=== PATIENT | male | born 1980 | race Two or more races ===

== ENCOUNTER 2021-12-23 09:37 | Outpatient (REF) | payer OTHER, SELFPAY ==
[2021-12-23 10:21] LABS: Hemoglobin 15.9 g/dl (14.0-18.0); Mean Corpuscular HGB Conc 34.6 g/dl (31.0-36.0); Mean Corpuscular Hemoglobin 28.9 pg (27.0-33.0); Mean Corpuscular Volume 83.6 fL (80.0-98.0); Mean Platelet Volume 9.3 fL (9.4-12.4); Platelet Count 338 X10*3/uL (160-400); Red Cell Distribution Width 13.9 % (11.0-16.0); White Blood Count 13.3 X10*3/uL (4.8-10.8)
[2021-12-23 10:34] LABS: Estimated Average Glucose 117 mg/dL; Hemoglobin A1c % 5.7 %
[2021-12-23 10:52] LABS: Alanine Aminotransferase 32 U/L (0-40); Albumin Level 4.2 g/dL (3.5-5.0); Alkaline Phosphatase 69 U/L (39-117); Anion Gap 13 (12-20); Aspartate Amino Transferase 17 U/L (5-37); Bilirubin Total 0.4 mg/dL (0.0-1.0); Blood Urea Nitrogen 18 mg/dL (9-16); Calcium 9.8 mg/dL (8.4-10.2); Carbon Dioxide 27 mmol/L (22-29); Chloride 107 mmol/L (96-108); Cholesterol 199 mg/dL; Estimated Glomerular Filt Rate > 60; Glucose Fasting 96 mg/dL (60-99); HDL Cholesterol 35 mg/dL; LDL Cholesterol Calculated 136 mg/dl; Sodium 143 mmol/L (135-145); Total Protein 7.5 g/dL (6.5-8.0); Triglycerides 141 mg/dL
[2021-12-23 11:12] LABS: TSH reflex Free T4 2.79 uIU/mL (0.32-4.0)
== END 2021-12-23 09:38 | disposition home or self-care (01) ==
LOC: HO.LAB 09:37
PROVIDERS: PCP Physician Assistant; Visit Provider Physician Assistant
DX: Z13.29 Encounter for screening for other suspected endocrine disorder (principal); E78.2 Mixed hyperlipidemia
CPT/HCPCS: 36415; 80053; 80061; 83036; 84443; 85027

== ENCOUNTER 2022-03-21 12:04 | Outpatient (REF) | payer OTHER, SELFPAY ==
--- NOTE | ~2022-03-21 | XR_ITS ---
EXAMINATION: XR CHEST CLINICAL INFORMATION: Cough COMPARISON: 11/09/2015 TECHNIQUE: 2 views of the chest were obtained. FINDINGS: No significant abnormality is noted involving the heart, lungs, mediastinum, bony thorax or soft tissues. XR/XR chest 2V IMPRESSION: Unremarkable examination.
[2022-03-21 13:36] LABS: MANUAL DIFF FLAG NO
[2022-03-21 13:43] LABS: Basophils Absolute Auto 0.1 X10*3/uL (0.0-0.2); Basophils Percent Auto 0.4 % (0-2); Eosinophils Absolute Auto 0.1 X10*3/uL (0.0-0.4); Hematocrit 46.7 % (42.0-52.0); Hemoglobin 15.8 g/dl (14.0-18.0); Imm Gran Pct Auto 0.7 % (0.0-0.4); Lymphocytes Absolute Auto 3.1 X10*3/uL (1.2-4.9); Lymphocytes Percent Auto 22.4 % (20-40); Mean Corpuscular HGB Conc 33.8 g/dl (31.0-36.0); Mean Corpuscular Hemoglobin 28.4 pg (27.0-33.0); Mean Corpuscular Volume 83.8 fL (80.0-98.0); Mean Platelet Volume 9.5 fL (9.4-12.4); Monocytes Absolute Auto 1.1 X10*3/uL (0.1-1.2); Monocytes Percent Auto 8.1 % (2-11); Neutrophils Absolute Auto 9.2 x10*3/uL (2.0-8.3); Neutrophils Percent Auto 67.4 % (45-73); Platelet Count 374 X10*3/uL (160-400); Red Blood Count 5.57 X10*6/uL (4.60-5.80); Red Cell Distribution Width 13.2 % (11.0-16.0); White Blood Count 13.6 X10*3/uL (4.8-10.8)
[2022-03-21 14:19] LABS: Monotest Negative (Negative)
[2022-03-21 14:46] LABS: Alanine Aminotransferase 44 U/L (0-40); Albumin Level 4.4 g/dL (3.5-5.0); Alkaline Phosphatase 92 U/L (39-117); Anion Gap 12 (12-20); Aspartate Amino Transferase 32 U/L (5-37); Bilirubin Direct 0.3 mg/dL (0.0-0.5); Bilirubin Total 0.6 mg/dL (0.0-1.0); Blood Urea Nitrogen 15 mg/dL (9-16); Calcium 9.7 mg/dL (8.4-10.2); Carbon Dioxide 26 mmol/L (22-29); Chloride 106 mmol/L (96-108); Estimated Glomerular Filt Rate > 60; Glucose Random 116 mg/dL (60-115); Potassium 4.3 mmol/L (3.3-5.1); Sodium 140 mmol/L (135-145); Total Protein 8.4 g/dL (6.5-8.0)
[2022-03-21 15:31] LABS: Influenza A PCR NEGATIVE (Negative); Influenza B PCR NEGATIVE (Negative); Resp Syncy Virus RNA Qual PCR NEGATIVE (Negative); SARS COV2 PCR INHOUSE NEGATIVE (Negative)
[2022-03-23 04:29] LABS: Lyme Abs Screen <0.90 index
== END 2022-03-21 12:05 | disposition home or self-care (01) ==
LOC: HO.HMGCLDS 12:04
PROVIDERS: Visit Provider Physician Assistant
DX: B34.9 Viral infection, unspecified (principal); R50.9 Fever, unspecified; R05.9 Cough, unspecified; Z20.822 Contact with and (suspected) exposure to COVID-19
CPT/HCPCS: 0241U; 36415; 71046; 80048; 80076; 85025; 86308; 86617; 86618

== ENCOUNTER 2022-03-24 17:00 | Outpatient (RCR) | payer OTHER, SELFPAY ==
--- NOTE | 2022-02-15 13:53 | MHC.PT.EP ---
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 He reports he has a brain MRI 02/16/22 and an EMG on 03/30/22. Pt presents with current impairments in pain, decreased ROM, decreased strength, soft tissue restrictions, and impaired posture. He is limited functionally by facial expressions, eating, and eye opening/closing. Pt is a good candidate for skilled PT in order to address current impairments to facilitate return to PLOF. He will be seen 2x/week for 4 weeks and will be reassessed at that time. Frequency and Duration: The patient will be seen 2x/week for 4 weeks Short Term Goals: Pt will be I with HEP to promote self management of symptoms Pt will demonstrate improvement in L smiling to 75% compared to R side Intermediate Goals: Pt will demonstrate 100% eye closing of L eye in order to protect eye and prevent dryness/injury Pt will report <3/10 L sided forehead, eyebrow, eye, and cheek pain w/ chewing and swallowing to promote eating with minimal to no compensation Treatment Plan: Modalities to reduce pain, spasms and effusion. Manual therapy to restore motion and function. Therapeutic exercise to improve strength and flexibility. Neuromuscular re-education for posture and balance. Therapeutic activities to return to functional activities of daily living. Electronically signed by: Shivani Sue, PT, DPT Please sign and return to therapist. Thank you for your referral.
--- NOTE | 2022-03-25 14:00 | MHC.PT.DC ---
[facility] [place] Office [place] Office [place] Office [address] Matt Barnes [address] [phone] F: [phone] F: [phone] F: [phone] F: [phone] Physical Therapy Discharge Report Diagnosis: Isaacs's Palsy Date of Surgery: n/a Date of Evaluation: 02/14/22 Date of Discharge: 03/25/22 Treatments to Date: 7 Cancellations to Date: No Shows to Date: Discharge Status: Achieved Goals Improved Function Independent with HEP Discharge Summary: Pt has made excellent progress since SOC. He no longer has facial pain. He reports he has returned to eating/chewing without compensation. He has improved voluntary activation of facial muscles throughout L side. Eye opening, forehead wrinkling, smiling, frowning, and mouth opening are symmetrical bilaterally. He is able to close L eye ~95% at this time. He is I and compliant with HEP. Pt is being D/C from skilled PT at this time. Pt reports no further questions or concerns for PT at time of D/C. Electronically signed by: Shivani Sue, PT, DPT Please sign and return to therapist. Thank you for your referral.
== END 2022-03-25 14:00 | disposition home or self-care (01) ==
LOC: HO.PT 17:00
PROVIDERS: PCP Physician Assistant; Visit Provider Nurse Practitioner Family
DX: G51.0 Bell's palsy (principal)
CPT/HCPCS: 97014; 97110; 97140; 97162

== ENCOUNTER 2022-07-09 10:14 | Outpatient (REF) | payer OTHER, SELFPAY ==
[2022-07-09 11:23] LABS: Hematocrit 45.7 % (42.0-52.0); Mean Corpuscular Hemoglobin 29.3 pg (27.0-33.0); Mean Corpuscular Volume 83.5 fL (80.0-98.0); Mean Platelet Volume 9.8 fL (9.4-12.4); Platelet Count 297 X10*3/uL (160-400); Red Blood Count 5.47 X10*6/uL (4.60-5.80); Red Cell Distribution Width 13.8 % (11.0-16.0); White Blood Count 6.8 X10*3/uL (4.8-10.8)
[2022-07-09 11:40] LABS: Alanine Aminotransferase 49 U/L (0-40); Albumin Level 4.3 g/dL (3.5-5.0); Alkaline Phosphatase 79 U/L (39-117); Anion Gap 13 (12-20); Aspartate Amino Transferase 33 U/L (5-37); Bilirubin Total 0.6 mg/dL (0.0-1.0); Blood Urea Nitrogen 17 mg/dL (9-16); Calcium 9.5 mg/dL (8.4-10.2); Carbon Dioxide 26 mmol/L (22-29); Chloride 107 mmol/L (96-108); Cholesterol 160 mg/dL; Estimated Glomerular Filt Rate > 60; Glucose Fasting 117 mg/dL (60-99); HDL Cholesterol 32 mg/dL; LDL Cholesterol Calculated 104 mg/dl; Sodium 141 mmol/L (135-145); Total Protein 7.8 g/dL (6.5-8.0); Triglycerides 124 mg/dL
[2022-07-09 12:02] LABS: TSH reflex Free T4 1.29 uIU/mL (0.32-4.0)
[2022-07-11 21:42] LABS: Herpes Simplex Type 1 IgG >58.00 index; Herpes Simplex Type 2 IgG 1.33 index
[2022-07-11 21:47] LABS: Lyme Abs Screen <0.90 index
== END 2022-07-09 10:15 | disposition home or self-care (01) ==
LOC: HO.LAB 10:14
PROVIDERS: PCP Physician Assistant; Visit Provider Physician Assistant
DX: E78.2 Mixed hyperlipidemia (principal); G51.0 Bell's palsy
CPT/HCPCS: 36415; 80053; 80061; 84443; 85027; 86617; 86618; 86695; 86696

== ENCOUNTER → 2022-08-30 14:30 | Outpatient (BNVA) | payer OTHER, SELFPAY | PROVIDERS: PCP Physician Assistant; Visit Provider Orthopaedic Surgery | DX: G56.02 Carpal tunnel syndrome, left upper limb (principal); R20.0 Anesthesia of skin | CPT/HCPCS: 99202 ==

== ENCOUNTER 2022-09-01 06:48 | Outpatient (REF) | payer OTHER, SELFPAY ==
--- NOTE | ~2022-09-01 | XR_ITS ---
EXAMINATION: BILATERAL KNEE STANDING. LEFT KNEE. CLINICAL INFORMATION: Bilateral knee pain. COMPARISON: None TECHNIQUE: AP bilateral knee standing. Left knee 2 views. FINDINGS: AP bilateral knee: There is mild reduction in the medial compartment joint space both knees. The lateral compartment joints is maintained normal. No loose bodies or bony erosive changes. The soft tissues are normal. Left knee: Lateral and patellar views left knee reveal minimal loss of patellofemoral compartment joint space. No bony erosive changes, loose bodies or dislocation seen. There is no fracture. No abnormal suprapatellar joint effusion. XR/XR knee LT 2V IMPRESSION: Mild degenerative changes medial compartment joint space both knees and left patellofemoral compartment. No visible acute fracture, dislocation or subluxation seen.
--- NOTE | ~2022-09-01 | XR_ITS ---
EXAMINATION: BILATERAL KNEE STANDING. LEFT KNEE. CLINICAL INFORMATION: Bilateral knee pain. COMPARISON: None TECHNIQUE: AP bilateral knee standing. Left knee 2 views. FINDINGS: AP bilateral knee: There is mild reduction in the medial compartment joint space both knees. The lateral compartment joints is maintained normal. No loose bodies or bony erosive changes. The soft tissues are normal. Left knee: Lateral and patellar views left knee reveal minimal loss of patellofemoral compartment joint space. No bony erosive changes, loose bodies or dislocation seen. There is no fracture. No abnormal suprapatellar joint effusion. XR/XR knee standing BI IMPRESSION: Mild degenerative changes medial compartment joint space both knees and left patellofemoral compartment. No visible acute fracture, dislocation or subluxation seen.
== END 2022-09-01 06:49 | disposition home or self-care (01) ==
LOC: HO.HOSX 06:48
PROVIDERS: Visit Provider Physician Assistant
DX: M22.2X2 Patellofemoral disorders, left knee (principal); M25.561 Pain in right knee
CPT/HCPCS: 73560; 73565; 99202

== ENCOUNTER 2022-10-03 09:33 | Day surgery (SDC) | payer OTHER, SELFPAY ==
[2022-10-03 10:30] VITALS: BMI 32.5
--- NOTE | 2022-10-03 11:57 | MHC.SHP ---
Pre-Procedural Eval Section A Date of Service: 10/03/22 The patient is an INPATIENT: No Changes since office visit: No Cold of Flu in the past 2 weeks, No New Medical Problems, No Changes in Medication and No Patient answered all questions The History & Physical has been completed within 30 days and I have reviewed it.: Yes Section B Chief Complaint: Carpal tunnel syndrome, left upper limb Allergies: Allergies Allergy/AdvReac Type Severity Reaction Status Date / Time albuterol AdvReac Unknown vomiting Verified 08/30/22 14:44 Plan I have reviewed the history and physical and performed a pertinent physical examination on my patient. No changes have occurred unless specified. Time Spent With Patient Time: Total time managing care of this patient today ____ minutes.
--- NOTE | 2022-10-03 11:58 | W.PM.OPN ---
Operative Note Operative Note Date of Service: 10/03/22 Narrative: Preop diagnosis: 1. left Carpal tunnel syndrome Postop diagnosis: same Procedure: 1. left Carpal tunnel release Surgeon: Dora Adams MD Anesthesia: local block using 1% lidocaine with epinephrine Findings: Thickened transverse carpal ligament. EBL: Less than 5 mL Specimens: None Complications: None Disposition: Brought to recovery room in stable condition Plan: Follow-up for 10-14 days for wound check and suture removal Indications: The patient is 42 years old, with left carpal tunnel syndrome that has been unresponsive to nonoperative management. The risks and benefits of operative treatment including but not limited to risk of damage to blood vessels, nerves, tendons, infection, persistent pain, persistent symptoms, or possible need for additional surgery were discussed with the patient and the patient wishes to proceed with surgery. Procedure: Once consent was obtained a local block was performed using a combination of 1% lidocaine with epinephrine. The patient was then brought back to the operating suite and placed on the operative table in supine position. A tourniquet was applied to the proximal aspect of the left upper extremity and the limb was prepped and draped in a standard surgical fashion. Once assured that we had a good block, a 2.0 cm longitudinal incision was made centered over the carpal tunnel. The incision was made through the skin to the subcutaneous tissues using a #15 blade. Dissection was made down to the level of the transverse carpal ligament with care being taken to protect the palmar cutaneous nerve. Once the transverse carpal ligament was clearly visualized, a longitudinal incision was made in the transverse carpal ligament 1st using a #15 blade, then using tenotomy scissors under direct visualization. Care was taken to look for and protect the motor branch of the median nerve when seen in this area. Once satisfied with our carpal tunnel release the wound was copiously irrigated with normal saline and hemostasis was obtained with a brief period of local pressure. The skin edges were reapproximated with some 5.0 nylon suture material and a sterile dressing was applied. The patient appears to have tolerated the procedure well and with no complications. All digits were well vascularized at the conclusion of the case.
[2022-10-03 12:35] VITALS: BP 120/81; PULSE 72; RESP 16; O2SAT 97
== END 2022-10-03 12:36 | disposition home or self-care (01) ==
PROVIDERS: PCP Physician Assistant; Visit Provider Orthopaedic Surgery
PROC: (CPT 64721; principal; 2022-10-03 12:10)
DX: G56.02 Carpal tunnel syndrome, left upper limb (principal); R20.0 Anesthesia of skin; R20.2 Paresthesia of skin; Z88.8 Allergy status to other drugs, medicaments and biological substances
CPT/HCPCS: 64721; J0171

== ENCOUNTER → 2022-10-18 11:51 | Outpatient (BNVA) | payer OTHER, SELFPAY | PROVIDERS: PCP Physician Assistant; Visit Provider Orthopaedic Surgery | DX: G56.02 Carpal tunnel syndrome, left upper limb (principal); R20.0 Anesthesia of skin | CPT/HCPCS: 99212 ==

== ENCOUNTER 2022-11-17 08:26 | Day surgery (SDC) | payer OTHER, SELFPAY ==
[2022-11-17 08:48] VITALS: BP 121/74; PULSE 88; RESP 18; TEMP 36.6; O2SAT 97; BMI 33.3
--- NOTE | 2022-11-17 09:28 | MHC.SHP ---
Pre-Procedural Eval Section A Date of Service: 11/17/22 The patient is an INPATIENT: No Changes since office visit: No Cold of Flu in the past 2 weeks, No New Medical Problems, No Changes in Medication and No Patient answered all questions The History & Physical has been completed within 30 days and I have reviewed it.: Yes Section B Chief Complaint: Carpal tunnel syndrome, right upper limb Allergies: Allergies Allergy/AdvReac Type Severity Reaction Status Date / Time albuterol AdvReac Unknown vomiting Verified 10/18/22 11:56 Plan I have reviewed the history and physical and performed a pertinent physical examination on my patient. No changes have occurred unless specified. Time Spent With Patient Time: Total time managing care of this patient today ____ minutes.
--- NOTE | 2022-11-17 09:28 | W.PM.OPN ---
Operative Note Operative Note Date of Service: 11/17/22 Narrative: Preop diagnosis: 1. Right Carpal tunnel syndrome Postop diagnosis: same Procedure: 1. Right Carpal tunnel release Surgeon: Dora Adams MD Anesthesia: local block using 1% lidocaine with epinephrine Findings: Thickened transverse carpal ligament. EBL: Less than 5 mL Specimens: None Complications: None Disposition: Brought to recovery room in stable condition Plan: Follow-up for 10-14 days for wound check and suture removal Indications: The patient is 42 years old, with right carpal tunnel syndrome that has been unresponsive to nonoperative management. The risks and benefits of operative treatment including but not limited to risk of damage to blood vessels, nerves, tendons, infection, persistent pain, persistent symptoms, or possible need for additional surgery were discussed with the patient and the patient wishes to proceed with surgery. Procedure: Once consent was obtained a local block was performed using a combination of 1% lidocaine with epinephrine. The patient was then brought back to the operating suite and placed on the operative table in supine position. The right upper extremity was prepped and draped in a standard surgical fashion. Once assured that we had a good block, a 2.0 cm longitudinal incision was made centered over the carpal tunnel. The incision was made through the skin to the subcutaneous tissues using a #15 blade. Dissection was made down to the level of the transverse carpal ligament with care being taken to protect the palmar cutaneous nerve. Once the transverse carpal ligament was clearly visualized, a longitudinal incision was made in the transverse carpal ligament 1st using a #15 blade, then using tenotomy scissors under direct visualization. Care was taken to look for and protect the motor branch of the median nerve when seen in this area. Once satisfied with our carpal tunnel release the wound was copiously irrigated with normal saline and hemostasis was obtained with a brief period of local pressure. The skin edges were reapproximated with some 5.0 nylon suture material and a sterile dressing was applied. The patient appears to have tolerated the procedure well and with no complications. All digits were well vascularized at the conclusion of the case.
[2022-11-17 11:52] VITALS: BP 123/88; PULSE 73; RESP 17; O2SAT 96
== END 2022-11-17 12:05 | disposition home or self-care (01) ==
PROVIDERS: PCP Physician Assistant; Visit Provider Orthopaedic Surgery
PROC: (CPT 64721; principal; 2022-11-17 09:50)
DX: G56.01 Carpal tunnel syndrome, right upper limb (principal); R20.0 Anesthesia of skin; R20.2 Paresthesia of skin; Z88.8 Allergy status to other drugs, medicaments and biological substances
CPT/HCPCS: 64721; J0171

== ENCOUNTER 2022-11-29 10:00 | Outpatient (RCR) | payer OTHER, SELFPAY ==
--- NOTE | 2022-10-31 12:10 | MHC.PT.EP ---
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 Pt WOULD BENEFIT FROM PT TO ADDRESS THE ABOVE FINDINGS, DEV A HEP, AND PAIN MGMT TO ENABLE RTW/ REG ADLs. Frequency and Duration: The patient will be seen 2 x WK x 6 WKS Short Term Goals: *IMPROVE TANVIR HS/ HIP FLEXIB/ TERMINAL KNEE EXT *Pt DEMON EFFICIENT SQUAT AND GAIT MECHANICS *DECR Lt KNEE PAIN TO 2-3/10 Jail Goals: *Pt INDEP W PROGRESSIVE HEP AND SELF=SX MGMT TECHN *Pt RESUME REG ADLS AND FITNESS W/O Lt KNEE LIMITATIONS *Pt's LEFT LE/ LUMBOPELVIC STRENGTH WFL/ IMPROVED BY 1/2-1 GRADE Treatment Plan: Modalities to reduce pain, spasms and effusion. Manual therapy to restore motion and function. Therapeutic exercise to improve strength and flexibility. Neuromuscular re-education for posture and balance. Therapeutic activities to return to functional activities of daily living. Electronically signed by: ALVAREZ CASTRO,PT Please sign and return to therapist. Thank you for your referral.
--- NOTE | 2022-11-29 11:04 | MHC.PT.DC ---
[facility] [place] Office [place] Office [place] Office [address] Matt Barnes 140 [facility] [phone] F: [phone] F: [phone] F: [phone] F: [phone] Physical Therapy Discharge Report Diagnosis: LEFT PATELLOFEMORAL DISORDER Date of Surgery: Date of Evaluation: 10/31/22 Date of Discharge: 11/29/22 Treatments to Date: 5 Cancellations to Date: 4 No Shows to Date: 1 Discharge Status: Achieved Goals Improved Function Independent with HEP Discharge Summary: Pt MET PT GOALS AT THIS TIME, ULTIMATELY, BEING PAINFREE AND RESUMING REG ADLs- INDEP W HEP, WFL STRENGTH/ FLEXIBILITY/ ROM-Pt IS D/C'D THIS DATE W HIS HEP. LEFI SCORE 43/80 Electronically signed by: ALVAREZ CASTRO,PT Please sign and return to therapist. Thank you for your referral.
== END 2022-11-29 11:04 | disposition home or self-care (01) ==
LOC: HO.PT 10:00
PROVIDERS: Visit Provider Physician Assistant
DX: M22.2X2 Patellofemoral disorders, left knee (principal)
CPT/HCPCS: 97110; 97161; 97530

== ENCOUNTER → 2022-11-30 11:57 | Outpatient (BNVA) | payer OTHER, SELFPAY | PROVIDERS: PCP Physician Assistant; Visit Provider Orthopaedic Surgery | DX: G56.02 Carpal tunnel syndrome, left upper limb (principal) | CPT/HCPCS: 99212 ==

== ENCOUNTER 2023-06-28 09:49 | Outpatient (REF) | payer OTHER, SELFPAY ==
[2023-06-28 10:15] LABS: Hematocrit 49.2 % (42.0-52.0); Hemoglobin 16.4 g/dl (14.0-18.0); Mean Corpuscular HGB Conc 33.3 g/dl (31.0-36.0); Mean Platelet Volume 9.5 fL (9.4-12.4); Platelet Count 325 X10*3/uL (160-400); Red Blood Count 5.86 X10*6/uL (4.60-5.80); Red Cell Distribution Width 13.6 % (11.0-16.0); White Blood Count 6.3 X10*3/uL (4.8-10.8)
[2023-06-28 11:00] LABS: Alanine Aminotransferase 69 U/L (0-40); Albumin Level 4.2 g/dL (3.5-5.0); Alkaline Phosphatase 80 U/L (39-117); Anion Gap 11 (12-20); Aspartate Amino Transferase 35 U/L (5-37); Bilirubin Total 0.4 mg/dL (0.0-1.0); Blood Urea Nitrogen 17 mg/dL (9-16); Calcium 9.5 mg/dL (8.4-10.2); Carbon Dioxide 26 mmol/L (22-29); Chloride 106 mmol/L (96-108); Cholesterol 211 mg/dL (<200); Estimated Glomerular Filt Rate > 60; Glucose Fasting 151 mg/dL (60-99); HDL Cholesterol 32 mg/dL (>40); LDL Cholesterol Calculated 147 mg/dL (<100); Potassium 4.4 mmol/L (3.3-5.1); Sodium 139 mmol/L (135-145); Total Protein 7.9 g/dL (6.5-8.0); Triglycerides 163 mg/dL (<150)
[2023-06-28 11:17] LABS: TSH reflex Free T4 1.76 uIU/mL (0.32-4.0)
== END 2023-06-28 09:50 | disposition home or self-care (01) ==
LOC: HO.LAB 09:49
PROVIDERS: PCP Physician Assistant; Visit Provider Physician Assistant
DX: E78.2 Mixed hyperlipidemia (principal)
CPT/HCPCS: 36415; 80053; 80061; 84443; 85027

== ENCOUNTER 2023-06-29 10:27 | Outpatient (REF) | payer OTHER, SELFPAY ==
[2023-06-29 10:50] LABS: Estimated Average Glucose 131 mg/dL; Hemoglobin A1c % 6.2 % (<6.0)
== END 2023-06-29 10:28 | disposition home or self-care (01) ==
LOC: HO.LAB 10:27
PROVIDERS: PCP Physician Assistant; Visit Provider Physician Assistant
DX: R73.01 Impaired fasting glucose (principal)
CPT/HCPCS: 36415; 83036

== ENCOUNTER 2023-07-26 09:21 | Outpatient (AMB) | payer OTHER, SELFPAY ==
[2023-07-26 10:09] VITALS: BP 110/78; PULSE 85; RESP 17; O2SAT 97; BMI 34.6
--- NOTE | 2023-07-26 10:09 | A.OFFPC_ITS ---
Vital Signs 07/26/23 10:09 Height 5 ft 8 in Weight 227 lb 6 oz BMI 34.6 BP 110/78 Blood Pressure Location Lt brachial Position Sitting Respiration 17 Pulse 85 Pulse Source Pulse Oximeter Pulse Oximetry (%) 97 Oxygen Delivery Method Room Air Intake Visit Reasons: f/u HLD Intake Note: The patient is present for a follow-up regarding their recent lab results and high cholesterol (HLD). The patient also wishes to discuss Ozempic and is concerned about an itching sensation and growth on a beauty veronica. Tobacco Stemmer Machine Required: No Accompanied by: Self / Same As Patient Allergies albuterol Adverse Reaction (Unknown, Verified 07/27/23 07:38) vomiting Medication List - Last Reconciled 07/27/23 by Berny Ochoa PA-C albuterol sulfate 90 mcg/actuation 1 inh inhalation QID 30 days ibuprofen 800 mg PO Q8H PRN metformin ER 500 mg PO DAILY 30 days omeprazole 20 mg PO DAILY 20 days rosuvastatin (Crestor) 10 mg PO DAILY 90 days semaglutide (Rybelsus) 7 mg PO DAILY 30 days white petrolatum-mineral oil 83-15 % (Lubrifresh PM) 0.25 inches ophthalmic (eye) BEDTIME PRN 15 days Tobacco use date assessed: 01/10/23 Dental Screening Dental Screen Date: 07/26/23 Did you have a dental visit in the last 12 months?: Yes Did you have a dental problem in the last 6 months where you did not have access to dental care?: No Was dental information given to patient?: Patient has dentist HPI f/u HLD HPI Details Patient is a 43-year-old male here today for follow-up visit with a past medical history significant for hyperlipidemia, Isaacs's palsy, asthma. .. Asthma: Has been stable with only p.r.n. use of his albuterol inhaler. He denies any recent asthma exacerbations or nighttime awakenings with asthma symptoms .. Impaired glucose metabolism: Most recent A1c is 6.2, has had fasting blood sugars at 151. Continues on metformin though A1c seems to be elevated. He is interested in trying G LP 1. .. Hyperlipidemia: Most recent fasting lipid panel showing borderline high total cholesterol and elevation is LDL 140. He continues on moderate statin therapy at this time. GERD: Has been stable since he changed his diet. Does use omeprazole 20 mg on a as needed basis .. Laboratory Tests 03/24/22 07/09/22 07/09/22 15:34 10:29 10:29 Hgb Fasting Glucose 117 H Estimat Average Gl ucose Hgb A1c (Clinic) 6.0 Hemoglobin A1c % Cholesterol 160 LDL Cholesterol, C alc 104 06/28/23 06/28/23 06/28/23 10:01 10:01 10:01 Hgb Fasting Glucose 151 H Estimat Average Gl ucose Hgb A1c (Clinic) Hemoglobin A1c % Cholesterol 211 H LDL Cholesterol, C alc 147 H 06/28/23 06/29/23 06/29/23 10:01 10:35 10:35 Hgb 16.4 Fasting Glucose Estimat Average Gl ucose 131 Hgb A1c (Clinic) Hemoglobin A1c % 6.2 H Cholesterol LDL Cholesterol, C alc [facility] History History of hand surgery Family History Father Diabetes Social History Housing: House Alcohol intake: former Patient Tobacco Use Status: Never used Tobacco e-Cigarette/Vaping Use: Never Used Second Hand Smoke Exposure: No service: No Current occupational status: employed 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 Dc Hanna, Vianney Manzo, Ernesto Washington and colleagues, with an educational harris from [employer]. Review of Systems Const Denies headache(s) Eyes Denies loss of vision ENT Denies vertigo, Denies dizziness, Denies headache(s) and Denies sore throat Card Denies chest pain, Denies leg edema and Denies lightheadedness Resp Denies cough, Denies hemoptysis and Denies wheezing GI Denies abdominal pain, Denies melena, Denies constipation, Denies diarrhea and Denies vomiting Denies dysuria, Denies urinary frequency and Denies urinary urgency Musc Denies arthralgias, Denies joint swelling, Denies numbness and Denies tingling Neuro Denies Abnormal speech present, Denies behavioral changes, Denies vertigo, Denies dizziness, Denies headache(s), Denies loss of vision, Denies memory loss, Denies numbness and Denies tingling Psych Denies anxiety, Denies behavioral changes, Denies depression, Denies memory loss and Denies panic attacks Dave/Lymph Denies easy bleeding and Denies easy bruising Aller/Immun Denies wheezing Physical exam (Primary Care) Vital Signs: Last Vital Signs Pulse 85 07/26/23 10:09 Resp 17 07/26/23 10:09 BP 110/78 07/26/23 10:09 Pulse Ox 97 07/26/23 10:09 Oxygen Delivery Method Room Air 07/26/23 10:09 BMI result Body Mass Index 34.6 BMI Assessment/Plan discussion: High Tobacco/Smoking Status: Tobacco use Status Tobacco use date assessed 01/10/23 07/26/23 10:11 Patient Tobacco Use Status Never used Tobacco 07/26/23 10:11 e-Cigarette/Vaping Use Never Used 07/26/23 10:11 Thrive Assessment: Date of Thrive Assessment Date Thrive assessed 01/10/23 07/26/23 10:11 Const Other: Obesity General: healthy appearing, no acute distress, alert and awake Nutritional Appearance: well nourished Orientation/consciousness: oriented to person, oriented to place and oriented to time HENMT Ears: TM's normal bilaterally General nose exam: Normal nasal mucous membranes and turbinates present Eyes Conjunctivae: conjunctivae normal Sclerae: sclerae normal Pupils: Equal, round and reactive pupils present Neck Neck: Yes no lymphadenopathy and Yes no JVD Thyroid: Thyroid normal Carotids: no bruits Resp Effort & Inspection: normal respiratory effort and not tachypneic Auscultation: no crackles, no rales, no rhonchi and no wheezes Cardio Rate: regular rate Rhythm: regular rhythm Heart sounds: no murmurs and normal S1 and S2 GI Palpation (GI): Soft to palpation, nontender, no hepatomegaly and no splenomegaly Auscultation: normal bowel sounds Skin General skin exam: no rashes or lesions noted and dry skin Neuro General: oriented to person, oriented to place and oriented to time Cranial nerves: Yes Equal, round and reactive pupils present Speech: No Abnormal speech present Gait exam (Neuro): Normal gait present Motor exam (neuro): no tremor noted Extrem Right upper extremity: full ROM Left upper extremity: full ROM Right lower extremity: full ROM; no edema Left lower extremity: full ROM; no edema Psych Mental Status: mental status grossly normal Speech and movement: Normal speech and movement present Affect: normal affect Attitude: cooperative Thought process: Normal thought process present Office Procedures Flu Questionnaire Does the patient have a severe egg allergy?: No Does the patient have severe life threatening allergies?: No Does the patient have a fever or illness today?: No Has the patient ever had Guillain-[place] Syndrome?: No Has the patient ever had any past reaction to a flu shot?: No Immunizations flu vacc [id number] 6mos up(PF) 60 mcg(15 mcgx4)/0.5 mL IM syringe Performing Provider: Berny Ochoa PA-C Performing Location: [facility] Administered by: MARCIA Kuo on 07/26/23 10:24 Dose Route Admin Location Dispensed Lot Number Expiration Date NDC Resume Specialist 0.5 mL IM Left Deltoid 0.5 mL [id number] 03/24/24 [id number] [employer] VIS Given Date VIS Provided VIS Publication Date 07/26/23 Single Vaccine 21 Eligibility Eligibility Date Funding Source Not [facility] Eligible 07/26/23 Private Assessment and Plan Assessment & Plan (1) HLD (hyperlipidemia): Code(s): E78.5 - Hyperlipidemia, unspecified Qualifiers: Hyperlipidemia type: mixed hyperlipidemia Qualified Code(s): E78.2 - Mixed hyperlipidemia Plan: Patient continues on statin therapy without side effect. Most recent lipid panel showing slight elevation in his total cholesterol. LDL still appropriate. (2) DMII (diabetes mellitus, type 2): Code(s): E11.9 - Type 2 diabetes mellitus without complications Qualifiers: Diabetes mellitus complication status: with hyperglycemia Diabetes mellitus custodial insulin use: without custodial use Qualified Code(s): E11.65 - Type 2 diabetes mellitus with hyperglycemia Plan: Has found to have elevated fasting blood sugars (in diabetic range). A1c is 6.2. He continues on metformin 500 daily. He is interested in starting a GLP 1 for added benefit weight loss as well. Again advised on being adherent to a diabetic diet. Goal A1c is to remain below 6.0 (3) Obese: Code(s): E66.9 - Obesity, unspecified Qualifiers: Body mass index: BMI 33.0-33.9 Obesity classification: adult class 1 (BMI 30 - 34.9) Obesity type: due to excess calories Serious obesity comorbidity presence: without serious comorbidity Qualified Code(s): E66.09 - Other obesity due to excess calories; Z68.33 - Body mass index [BMI] 33.0-33.9, adult Plan: Patient does understand his BMI is over 30, has noted some weight gain since last office visit. He will work on being more physically active and adapting to better eating habits to reduce his weight He is interested in trying Ozempic for added benefit of weight loss. (4) Asthma: Code(s): J45.909 - Unspecified asthma, uncomplicated Qualifiers: Asthma complication type: uncomplicated Asthma persistence: intermittent Asthma severity: mild Qualified Code(s): J45.20 - Mild intermittent asthma, uncomplicated Plan: Asthma well controlled with only p.r.n. use of his albuterol inhaler. No recent asthma exacerbations are nighttime awakenings with asthma symptoms. Orders: Orders Lipid Panel 6 Months E78.2 - Mixed hyperlipidemia Influenza [id number] Immunization 07/26/23 Z23 - Encounter for immunization Comprehensive [place]. Panel Fast 6 Months E11.9 - Type 2 diabetes mellitus without complications Complete Blood Count no Diff 6 Months E11.9 - Type 2 diabetes mellitus without complications Medications: New semaglutide (Ozempic) for 4 weeks 0.25 mg (0.368 mL) subcut QWEEK 3 mL 1RF 6 weeks E11.9 - Type 2 diabetes mellitus without complications, E66.9 - Obesity, unspecified Coding Level of Care Code Est Pt Level 4 (78037) Diagnoses Mixed hyperlipidemia E78.2 Hyperlipidemia type: mixed hyperlipidemia Type 2 diabetes mellitus with hyperglycemia, without long-term current use of insulin E11.65 Diabetes mellitus complication status: with hyperglycemia Diabetes mellitus intermodal customer service insulin use: without custodial use Class 1 obesity due to excess calories without serious comorbidity with body mass index (BMI) of 33.0 to 33.9 in adult E66.09; Z68.33 Body mass index: BMI 33.0-33.9 Obesity classification: adult class 1 (BMI 30 - 34.9) Obesity type: due to excess calories Serious obesity comorbidity presence: without serious comorbidity Mild intermittent asthma without complication J45.20 Asthma complication type: uncomplicated Asthma persistence: intermittent Asthma severity: mild
== END 2023-07-26 10:57 | disposition home or self-care (01) ==
PROVIDERS: PCP Physician Assistant; Visit Provider Physician Assistant
DX: Z23 Encounter for immunization (principal)
CPT/HCPCS: 90471; 90686; 99214

== ENCOUNTER 2023-08-09 13:48 | Outpatient (AMB) | payer OTHER, SELFPAY ==
--- NOTE | 2023-08-09 14:42 | MHC.PC.OV ---
Vital Signs 08/09/23 14:43 Height 5 ft 8 in Weight 227 lb BMI 34.5 BP 128/90 H Blood Pressure Location Lt brachial Position Sitting Pulse 80 Pulse Source Pulse Oximeter Pulse Oximetry (%) 96 Oxygen Delivery Method Room Air Intake Visit Reasons: Pre-Op Pterygium Excision L Eye 08/31/23 Intake Note: Patient is here for a Pre-op for Pterygium Excision Left eye scheduled with Dr. Gonzáles on 08/31/2023. . Pt needs education for Trulicity. 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 Accompanied by: Spouse Allergies albuterol Adverse Reaction (Unknown, Verified 08/09/23 15:11) vomiting Medication List - Last Reconciled 08/09/23 by Berny Ochoa PA-C albuterol sulfate 90 mcg/actuation 1 inh inhalation QID 30 days dulaglutide (Trulicity) 0.75 mg (0.5 mL) subcut QWEEK 4 weeks ibuprofen 800 mg PO Q8H PRN metformin ER 500 mg PO DAILY 30 days omeprazole 20 mg PO DAILY 20 days rosuvastatin (Crestor) 10 mg PO DAILY 90 days white petrolatum-mineral oil 83-15 % (Lubrifresh PM) 0.25 inches ophthalmic (eye) BEDTIME PRN 15 days Tobacco use date assessed: 01/10/23 Dental Screening Dental Screen Date: 08/09/23 Did you have a dental visit in the last 12 months?: Yes Did you have a dental problem in the last 6 months where you did not have access to dental care?: No Was dental information given to patient?: Patient has dentist HPI Pre-Op Pterygium Excision L Eye 08/31/23 HPI Details Patient is a 43-year-old male here today for a preoperative exam. Patient has a past medical history significant for obesity, impaired glucose metabolism, asthma will Isaacs's palsy. .. Patient is due for at left pterygium removal on 08/31/2023. Patient has known history CVA, MS or Congestive heart failure. Patient is not on any anticoagulation or anti-platelet therapy. .. Also has been able to get Trulicity to start for his blood sugars and added benefit of weight. Today we have given him his 1st injection with Education to his to give him further injections weekly. 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 Dc Hanna, Vianney Manzo, Ernesto Washington and colleagues, with an educational harris from [employer]. Review of Systems Const Denies headache(s) Eyes Denies loss of vision ENT Denies vertigo, Denies dizziness, Denies headache(s) and Denies sore throat Card Denies chest pain, Denies leg edema and Denies lightheadedness Resp Denies cough, Denies hemoptysis and Denies wheezing GI Denies abdominal pain, Denies melena, Denies constipation, Denies diarrhea and Denies vomiting Denies dysuria, Denies urinary frequency and Denies urinary urgency Musc Denies arthralgias, Denies joint swelling, Denies numbness and Denies tingling Neuro Denies Abnormal speech present, Denies behavioral changes, Denies vertigo, Denies dizziness, Denies headache(s), Denies loss of vision, Denies memory loss, Denies numbness and Denies tingling Psych Denies anxiety, Denies behavioral changes, Denies depression, Denies memory loss and Denies panic attacks Dave/Lymph Denies easy bleeding and Denies easy bruising Aller/Immun Denies wheezing Physical exam (Primary Care) Vital Signs: Last Vital Signs Pulse 80 08/09/23 14:43 BP 128/90 H 08/09/23 14:43 Pulse Ox 96 08/09/23 14:43 Oxygen Delivery Method Room Air 08/09/23 14:43 BMI result Body Mass Index 34.5 Tobacco/Smoking Status: Tobacco use Status Tobacco use date assessed 01/10/23 08/09/23 14:45 Patient Tobacco Use Status Never used Tobacco 08/09/23 14:45 e-Cigarette/Vaping Use Never Used 08/09/23 14:45 Thrive Assessment: Date of Thrive Assessment Date Thrive assessed 01/10/23 08/09/23 14:45 Const General: healthy appearing, no acute distress, alert and awake Nutritional Appearance: well nourished Orientation/consciousness: oriented to person, oriented to place and oriented to time HENMT Ears: TM's normal bilaterally General nose exam: Normal nasal mucous membranes and turbinates present Eyes Conjunctivae: conjunctivae normal Sclerae: sclerae normal Pupils: Equal, round and reactive pupils present Neck Neck: Yes no lymphadenopathy and Yes no JVD Thyroid: Thyroid normal Carotids: no bruits Resp Effort & Inspection: normal respiratory effort and not tachypneic Auscultation: no crackles, no rales, no rhonchi and no wheezes Cardio Rate: regular rate Rhythm: regular rhythm Heart sounds: no murmurs and normal S1 and S2 GI Palpation (GI): Soft to palpation, nontender, no hepatomegaly and no splenomegaly Auscultation: normal bowel sounds Skin General skin exam: no rashes or lesions noted and dry skin Neuro General: oriented to person, oriented to place and oriented to time Cranial nerves: Yes Equal, round and reactive pupils present Speech: No Abnormal speech present Gait exam (Neuro): Normal gait present Motor exam (neuro): no tremor noted Extrem Right upper extremity: full ROM Left upper extremity: full ROM Right lower extremity: full ROM; no edema Left lower extremity: full ROM; no edema Psych Mental Status: mental status grossly normal Speech and movement: Normal speech and movement present Affect: normal affect Attitude: cooperative Thought process: Normal thought process present Assessment and Plan Assessment & Plan (1) Pre-op evaluation: Code(s): Z01.818 - Encounter for other preprocedural examination Plan: Patient is medically clear for needed left eye all procedure. (2) Pterygium: Code(s): H11.009 - Unspecified pterygium of unspecified eye Qualifiers: Laterality: left Qualified Code(s): H11.002 - Unspecified pterygium of left eye Plan: Patient's most recent labs and vitals today stable. Patient is clear for needed elective eye procedure. (3) Impaired glucose metabolism: Code(s): R73.09 - Other abnormal glucose Plan: Has started Trulicity today. Follow-up with patient 4 weeks to evaluate his weight and effectiveness of medication. Coding Level of Care Code Est Pt Level 3 (45676) Diagnoses Pre-op evaluation Z01.818 Pterygium of left eye H11.002 Laterality: left Impaired glucose metabolism R73.09
[2023-08-09 14:43] VITALS: BP 128/90; PULSE 80; O2SAT 96; BMI 34.5
== END 2023-08-09 15:27 | disposition home or self-care (01) ==
PROVIDERS: PCP Physician Assistant; Visit Provider Physician Assistant
DX: Z01.818 Encounter for other preprocedural examination (principal); H11.002 Unspecified pterygium of left eye; R73.09 Other abnormal glucose
CPT/HCPCS: 99213

== ENCOUNTER 2023-09-13 14:58 | Outpatient (AMB) | payer OTHER, SELFPAY ==
[2023-09-13 15:08] VITALS: BP 110/80; PULSE 90; RESP 16; O2SAT 98; BMI 33.8
--- NOTE | 2023-09-13 15:08 | A.OFFPC_ITS ---
Vital Signs 09/13/23 15:08 Height 5 ft 8 in Weight 222 lb BMI 33.8 BP 110/80 Blood Pressure Location Lt brachial Position Sitting Respiration 16 Pulse 90 Pulse Source Pulse Oximeter Pulse Oximetry (%) 98 Oxygen Delivery Method Room Air Intake Visit Reasons: f/u weight check - IGM [employer] Required: No Accompanied by: Self / Same As Patient Allergies albuterol Adverse Reaction (Unknown, Verified 09/13/23 15:37) vomiting Medication List - Last Reconciled 09/13/23 by Berny Ochoa PA-C albuterol sulfate 90 mcg/actuation 1 inh inhalation QID 30 days dulaglutide (Trulicity) 0.75 mg (0.5 mL) subcut QWEEK 4 weeks ibuprofen 800 mg PO Q8H PRN metformin ER 500 mg PO DAILY 30 days omeprazole 20 mg PO DAILY 20 days rosuvastatin (Crestor) 10 mg PO DAILY 90 days white petrolatum-mineral oil 83-15 % (Lubrifresh PM) 0.25 inches ophthalmic (eye) BEDTIME PRN 15 days Tobacco use date assessed: 01/10/23 Dental Screening Dental Screen Date: 09/13/23 Did you have a dental visit in the last 12 months?: Yes Did you have a dental problem in the last 6 months where you did not have access to dental care?: No Was dental information given to patient?: Patient has dentist HPI f/u weight check - IGM HPI Details Patient is a 43-year-old male here today for a follow-up visit Patient has a past medical history significant for obesity, impaired glucose metabolism, asthma will Isaacs's palsy. .. Obesity/ Impaired glucose metabolism: Also has been able to get Trulicity to start for his blood sugars and added benefit of weight. Has lost 5 lb since last office visit. He denies any side effects Trulicity and would like an increased dose for more weight loss.. 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 Dc Hanna, Vianney Manzo, Ernesto Washington and colleagues, with an educational harris from [employer]. Review of Systems Const Denies headache(s) Eyes Denies loss of vision ENT Denies vertigo, Denies dizziness, Denies headache(s) and Denies sore throat Card Denies chest pain, Denies leg edema and Denies lightheadedness Resp Denies cough, Denies hemoptysis and Denies wheezing GI Denies abdominal pain, Denies melena, Denies constipation, Denies diarrhea and Denies vomiting Denies dysuria, Denies urinary frequency and Denies urinary urgency Musc Denies arthralgias, Denies joint swelling, Denies numbness and Denies tingling Neuro Denies Abnormal speech present, Denies behavioral changes, Denies vertigo, Denies dizziness, Denies headache(s), Denies loss of vision, Denies memory loss, Denies numbness and Denies tingling Psych Denies anxiety, Denies behavioral changes, Denies depression, Denies memory loss and Denies panic attacks Dave/Lymph Denies easy bleeding and Denies easy bruising Aller/Immun Denies wheezing Physical exam (Primary Care) Vital Signs: Last Vital Signs Pulse 90 09/13/23 15:08 Resp 16 09/13/23 15:08 BP 110/80 09/13/23 15:08 Pulse Ox 98 09/13/23 15:08 Oxygen Delivery Method Room Air 09/13/23 15:08 BMI result Body Mass Index 33.8 Tobacco/Smoking Status: Tobacco use Status Tobacco use date assessed 01/10/23 09/13/23 15:14 Patient Tobacco Use Status Never used Tobacco 09/13/23 15:14 e-Cigarette/Vaping Use Never Used 09/13/23 15:14 Thrive Assessment: Date of Thrive Assessment Date Thrive assessed 01/10/23 09/13/23 15:14 Const General: healthy appearing, no acute distress, alert and awake Nutritional Appearance: well nourished Orientation/consciousness: oriented to person, oriented to place and oriented to time HENMT Ears: TM's normal bilaterally General nose exam: Normal nasal mucous membranes and turbinates present Eyes Conjunctivae: conjunctivae normal Sclerae: sclerae normal Pupils: Equal, round and reactive pupils present Neck Neck: Yes no lymphadenopathy and Yes no JVD Thyroid: Thyroid normal Carotids: no bruits Resp Effort & Inspection: normal respiratory effort and not tachypneic Auscultation: no crackles, no rales, no rhonchi and no wheezes Cardio Rate: regular rate Rhythm: regular rhythm Heart sounds: no murmurs and normal S1 and S2 GI Palpation (GI): Soft to palpation, nontender, no hepatomegaly and no splenomegaly Auscultation: normal bowel sounds Skin General skin exam: no rashes or lesions noted and dry skin Neuro General: oriented to person, oriented to place and oriented to time Cranial nerves: Yes Equal, round and reactive pupils present Speech: No Abnormal speech present Gait exam (Neuro): Normal gait present Motor exam (neuro): no tremor noted Extrem Right upper extremity: full ROM Left upper extremity: full ROM Right lower extremity: full ROM; no edema Left lower extremity: full ROM; no edema Psych Mental Status: mental status grossly normal Speech and movement: Normal speech and movement present Affect: normal affect Attitude: cooperative Thought process: Normal thought process present Assessment and Plan Assessment & Plan (1) Impaired glucose metabolism: Code(s): R73.09 - Other abnormal glucose Plan: Has been on Trulicity 0.75 mg weekly. Has lost 5 lb. He reports no adverse side effects from the medication.. He is interested in more weight loss thus will increase his Trulicity dose to 1.5 mg weekly. Advised to get fasting labs done before next office visit. (2) Obese: Code(s): E66.9 - Obesity, unspecified Qualifiers: Body mass index: BMI 33.0-33.9 Obesity classification: adult class 1 (BMI 30 - 34.9) Obesity type: due to excess calories Serious obesity comorbidity presence: without serious comorbidity Qualified Code(s): E66.09 - Other obesity due to excess calories; Z68.33 - Body mass index [BMI] 33.0-33.9, adult Plan: Has noted some weight loss with the addition of Trulicity. Will increase his dose for further weight loss Medications: New dulaglutide (Trulicity) 1.5 mg (0.5 mL) subcut QWEEK 4 weeks 2 mL 2RF H66.91 - Otitis media, unspecified, right ear, R73.09 - Other abnormal glucose On Hold dulaglutide (Trulicity) Hold Comment: Doctor's Order 0.75 mg (0.5 mL) subcut QWEEK 4 weeks 2 mL 0RF E11.65 - Type 2 diabetes mellitus with hyperglycemia Coding Level of Care Code Est Pt Level 3 (74564) Diagnoses Impaired glucose metabolism R73.09 Class 1 obesity due to excess calories without serious comorbidity with body mass index (BMI) of 33.0 to 33.9 in adult E66.09; Z68.33 Body mass index: BMI 33.0-33.9 Obesity classification: adult class 1 (BMI 30 - 34.9) Obesity type: due to excess calories Serious obesity comorbidity presence: without serious comorbidity
== END 2023-09-13 15:45 | disposition home or self-care (01) ==
PROVIDERS: PCP Physician Assistant; Visit Provider Physician Assistant
DX: R73.09 Other abnormal glucose (principal); E66.09 Other obesity due to excess calories; Z68.33 Body mass index [BMI] 33.0-33.9, adult
CPT/HCPCS: 99213

== ENCOUNTER 2024-05-02 13:36 | Outpatient (AMB) | payer OTHER, SELFPAY ==
[2024-05-02 13:56] VITALS: BP 118/78; PULSE 76; O2SAT 97; BMI 33.1
--- NOTE | 2024-05-02 13:56 | A.OFFPC_ITS ---
Vital Signs 05/02/24 13:56 Height 5 ft 8 in Weight 218 lb BMI 33.1 BP 118/78 Blood Pressure Location Lt brachial Position Sitting Pulse 76 Pulse Source Pulse Oximeter Pulse Oximetry (%) 97 Oxygen Delivery Method Room Air Intake Visit Reasons: F/U Check up Software Support Representative Required: No Accompanied by: Self / Same As Patient Allergies albuterol Adverse Reaction (Unknown, Verified 05/02/24 14:04) vomiting Medication List - Last Reconciled 05/02/24 by Berny Ochoa PA-C albuterol sulfate 90 mcg/actuation 1 inh inhalation QID 30 days ibuprofen 800 mg PO Q8H PRN metformin ER 500 mg PO DAILY omeprazole 20 mg PO DAILY 20 days rosuvastatin (Crestor) 10 mg PO DAILY 90 days semaglutide (weight loss) (Wegovy) 0.5 mg (0.5 mL) subcut QWEEK 4 weeks white petrolatum-mineral oil 83-15 % (Lubrifresh PM) 0.25 inches ophthalmic (eye) BEDTIME PRN 15 days Tobacco use date assessed: 01/10/23 Dental Screening Dental Screen Date: 09/13/23 HPI F/U Check up HPI Details Patient is a 44-year-old male here today for a follow-up visit Patient has a past medical history significant for obesity, impaired glucose metabolism, asthma.. .. Obesity/ Impaired glucose metabolism: Patient continues on metformin with decent affect. No side effects reported from metformin. A1c improved to 5.9 from 6.3. He would like to restart GLP 1 for added benefit of weight loss. .. 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 Dc Hanna, Vianney Manzo, Ernesto Washington and colleagues, with an educational harris from [employer]. Review of Systems Const Denies headache(s) Eyes Denies loss of vision ENT Denies vertigo, Denies dizziness, Denies headache(s) and Denies sore throat Card Denies chest pain, Denies leg edema and Denies lightheadedness Resp Denies cough, Denies hemoptysis and Denies wheezing GI Denies abdominal pain, Denies melena, Denies constipation, Denies diarrhea and Denies vomiting Denies dysuria, Denies urinary frequency and Denies urinary urgency Musc Denies arthralgias, Denies joint swelling, Denies numbness and Denies tingling Neuro Denies Abnormal speech present, Denies behavioral changes, Denies vertigo, Denies dizziness, Denies headache(s), Denies loss of vision, Denies memory loss, Denies numbness and Denies tingling Psych Denies anxiety, Denies behavioral changes, Denies depression, Denies memory loss and Denies panic attacks Dave/Lymph Denies easy bleeding and Denies easy bruising Aller/Immun Denies wheezing Physical exam (Primary Care) Vital Signs: Last Vital Signs Pulse 76 05/02/24 13:56 BP 118/78 05/02/24 13:56 Pulse Ox 97 05/02/24 13:56 Oxygen Delivery Method Room Air 05/02/24 13:56 BMI result Body Mass Index 33.1 Tobacco/Smoking Status: Tobacco use Status Tobacco use date assessed 01/10/23 05/02/24 13:58 Patient Tobacco Use Status Never used Tobacco 05/02/24 13:58 e-Cigarette/Vaping Use Never Used 05/02/24 13:58 Thrive Assessment: Date of Thrive Assessment Date Thrive assessed 01/10/23 05/02/24 13:58 Const General: healthy appearing, no acute distress, alert and awake Nutritional Appearance: well nourished Orientation/consciousness: oriented to person, oriented to place and oriented to time HENMT Ears: TM's normal bilaterally General nose exam: Normal nasal mucous membranes and turbinates present Eyes Conjunctivae: conjunctivae normal Sclerae: sclerae normal Pupils: Equal, round and reactive pupils present Neck Neck: Yes no lymphadenopathy and Yes no JVD Thyroid: Thyroid normal Carotids: no bruits Resp Effort & Inspection: normal respiratory effort and not tachypneic Auscultation: no crackles, no rales, no rhonchi and no wheezes Cardio Rate: regular rate Rhythm: regular rhythm Heart sounds: no murmurs and normal S1 and S2 GI Palpation (GI): Soft to palpation, nontender, no hepatomegaly and no splenomegaly Auscultation: normal bowel sounds Skin General skin exam: no rashes or lesions noted and dry skin Neuro General: oriented to person, oriented to place and oriented to time Cranial nerves: Yes Equal, round and reactive pupils present Speech: No Abnormal speech present Gait exam (Neuro): Normal gait present Motor exam (neuro): no tremor noted Extrem Right upper extremity: full ROM Left upper extremity: full ROM Right lower extremity: full ROM; no edema Left lower extremity: full ROM; no edema Psych Mental Status: mental status grossly normal Speech and movement: Normal speech and movement present Affect: normal affect Attitude: cooperative Thought process: Normal thought process present Results AMB Hemoglobin A1c AMB Hemoglobin A1c 5.9 % Last Edit by MARCIA Kuo on 05/02/24 14:05 Results Reviewed Results Reviewed: Laboratory Last Values Hgb A1c (Clinic) 5.9 % (4.0-6.0) 05/02/24 13:52 Assessment and Plan Assessment & Plan (1) Impaired glucose metabolism: Code(s): R73.09 - Other abnormal glucose Plan: TODAY'S A1C IMPROVED AT 5.9. HE HAS BEEN CONTINUED ON METFORMIN. HE HAS NOT BEEN ABLE TO GET GLP 1 FROM PHARMACY. HE IS WILLING TO RESTART WEGOVY AT 0.25 WEEKLY AND UP TITRATE PER RESPONSE. Advised to get fasting labs done before next office visit. (2) Obese: Code(s): E66.9 - Obesity, unspecified Qualifiers: Body mass index: BMI 33.0-33.9 Obesity classification: adult class 1 (BMI 30 - 34.9) Obesity type: due to excess calories Serious obesity comorbidity presence: without serious comorbidity Qualified Code(s): E66.09 - Other obesity due to excess calories; Z68.33 - Body mass index [BMI] 33.0-33.9, adult Plan: He does understand his BMI is elevated above 30. He is willing to start GLP 1 to help glycemic control and added benefit of weight loss. (3) Colon cancer screening: Code(s): Z12.11 - Encounter for screening for malignant neoplasm of colon Plan: Interested in colonoscopy screening Orders: Orders AMB Hemoglobin A1c Today R73.09 - Other abnormal glucose Lipid Panel Today E78.2 - Mixed hyperlipidemia Comprehensive [place]. Panel Fast Today E78.2 - Mixed hyperlipidemia Prostate Specific Antigen Scr Today E78.2 - Mixed hyperlipidemia, Z12.5 - Encounter for screening for malignant neoplasm of prostate Complete Blood Count no Diff Today J45.20 - Mild intermittent asthma, uncomplicated Referrals Gastroenterology Referral Z12.11 - Encounter for screening for malignant neoplasm of colon Medications: New semaglutide (weight loss) (Wegovsurendra) administer weeks 1 through 4 of therapy 0.25 mg (0.5 mL) subcut QWEEK 2 mL 0RF 4 weeks E66.09 - Other obesity due to excess calories, E78.2 - Mixed hyperlipidemia, R73.09 - Other abnormal glucose, Z68.33 - Body mass index [BMI] 33.0-33.9, adult Refilled metformin ER 500 mg PO DAILY 90 tabs 1RF R73.01 - Impaired fasting glucose Coding Level of Care Code Est Pt Level 4 (86249) Diagnoses Impaired glucose metabolism R73.09 Class 1 obesity due to excess calories without serious comorbidity with body m ass index (BMI) of 33.0 to 33.9 in adult E66.09; Z68.33 Body mass index: BMI 33.0-33.9 Obesity classification: adult class 1 (BMI 30 - 34.9) Obesity type: due to excess calories Serious obesity comorbidity presence: without serious comorbidity Colon cancer screening Z12.11
== END 2024-05-02 14:17 | disposition home or self-care (01) ==
PROVIDERS: PCP Physician Assistant; Visit Provider Physician Assistant
DX: R73.09 Other abnormal glucose (principal); E66.09 Other obesity due to excess calories; Z68.33 Body mass index [BMI] 33.0-33.9, adult; Z12.11 Encounter for screening for malignant neoplasm of colon
CPT/HCPCS: 83036; 99214

== ENCOUNTER 2024-05-08 09:14 | Outpatient (REF) | payer OTHER, SELFPAY ==
[2024-05-08 10:49] LABS: Hematocrit 48.4 % (42.0-52.0); Hemoglobin 16.7 g/dl (14.0-18.0); Mean Corpuscular HGB Conc 34.5 g/dl (31.0-36.0); Mean Corpuscular Hemoglobin 28.6 pg (27.0-33.0); Mean Platelet Volume 9.9 fL (9.4-12.4); Platelet Count 360 X10*3/uL (160-400); Red Blood Count 5.83 X10*6/uL (4.60-5.80); Red Cell Distribution Width 13.5 % (11.0-16.0); White Blood Count 7.7 X10*3/uL (4.8-10.8)
[2024-05-08 11:36] LABS: Prostate Specific Antigen Scr 2.56 ng/mL (<0.05-4.0)
[2024-05-08 12:21] LABS: Alanine Aminotransferase 36 U/L (0-40); Albumin Level 4.3 g/dL (3.5-5.0); Alkaline Phosphatase 92 U/L (39-117); Anion Gap 13 (12-20); Aspartate Amino Transferase 28 U/L (5-37); Bilirubin Total 0.4 mg/dL (0.0-1.0); Blood Urea Nitrogen 14 mg/dL (9-16); Calcium 9.8 mg/dL (8.4-10.2); Carbon Dioxide 25 mmol/L (22-29); Chloride 106 mmol/L (96-108); Cholesterol 207 mg/dL (<200); Estimated Glomerular Filt Rate > 60; Glucose Fasting 127 mg/dL (60-99); HDL Cholesterol 32 mg/dL (>40); LDL Cholesterol Calculated 136 mg/dL (<100); Potassium 4.3 mmol/L (3.3-5.1); Sodium 140 mmol/L (135-145); Triglycerides 198 mg/dL (<150)
== END 2024-05-08 09:15 | disposition home or self-care (01) ==
LOC: HO.LAB 09:14
PROVIDERS: PCP Physician Assistant; Visit Provider Physician Assistant
DX: Z12.5 Encounter for screening for malignant neoplasm of prostate (principal); E78.2 Mixed hyperlipidemia; J45.20 Mild intermittent asthma, uncomplicated
CPT/HCPCS: 36415; 80053; 80061; 84153; 85027

== ENCOUNTER 2024-08-07 10:58 | Outpatient (AMB) | payer OTHER, SELFPAY ==
[2024-08-07 11:43] VITALS: BP 126/78; PULSE 87; O2SAT 98; BMI 34.1
--- NOTE | 2024-08-07 11:43 | A.OFFPC_ITS ---
Vital Signs 08/07/24 11:43 Height 5 ft 8 in Weight 224 lb 4 oz BMI 34.1 BP 126/78 Blood Pressure Location Lt brachial Position Sitting Pulse 87 Pulse Source Pulse Oximeter Pulse Oximetry (%) 98 Oxygen Delivery Method Room Air Intake Visit Reasons: Annual Exam Intake Note: Patient is here today for a physical. Mold Presser Required: No Accompanied by: Self / Same As Patient Allergies albuterol Adverse Reaction (Unknown, Verified 08/07/24 11:57) vomiting Medication List - Last Reconciled 08/07/24 by Berny Ochoa PA-C albuterol sulfate 90 mcg/actuation 1 inh inhalation QID 30 days ibuprofen 800 mg PO Q8H PRN metformin ER 500 mg PO DAILY omeprazole 20 mg PO DAILY 20 days rosuvastatin 10 mg PO DAILY 90 days semaglutide (weight loss) (Wegovy) 0.5 mg (0.5 mL) subcut QWEEK 4 weeks white petrolatum-mineral oil 83-15 % (Lubrifresh PM) 0.25 inches ophthalmic (eye) BEDTIME PRN 15 days Tobacco use date assessed: 08/07/24 Dental Screening Dental Screen Date: 08/07/24 Did you have a dental visit in the last 12 months?: Yes Did you have a dental problem in the last 6 months where you did not have access to dental care?: No Was dental information given to patient?: Patient has dentist HPI Annual Exam HPI Details Patient is a 44-year-old male here today for a follow-up visit Patient has a past medical history significant for obesity, impaired glucose metabolism, asthma.. .. Obesity/ Impaired glucose metabolism: Patient continues on metformin with decent affect. No side effects reported from metformin. Today's A1c is 6.1. 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 1. Little interest or pleasure in doing things: not at all 2. Feeling down, depressed, or hopeless: not at all 3. Trouble falling or staying asleep, or sleeping too much: not at all 4. Feeling tired or having little energy: not at all 5. Poor appetite or overeating: not at all 6. Feeling bad about yourself - or that you are a failure or have let yourself or your family down: not at all 7. Trouble concentrating on things, such as reading the newspaper or watching television: not at all 8. Moving or speaking so slowly that other people could have noticed. Or the opposite - being so fidgety or restless that you have been moving around a lot more than usual: not at all 9. Thoughts that you would be better off or of hurting yourself in some way: not at all Total score: 0 Depression Screening Interpretation: Negative Depression Screening Done: Yes 80984 - PHQ-9 Billing: Yes Source: Developed by Drs. Dc Hanna, Vianney Manzo, Ernesto Washington and colleagues, with an educational harris from [employer]. Thrive Questionnaire Date Thrive assessed: 08/07/24 I am a: Patient What is your living situation today?: I have a steady place to live Within the past 12 months, did the food you bought not last and you didn't have the money to get more?: I choose not to answer this question Within the past 12 months, did you worry whether your food would run out before you got money to buy more?: I choose not to answer this question Do you have trouble paying for medicines?: No Do you have trouble getting transportation to medical appointments?: No Do you have trouble paying your heating and electricity bill?: No Do you have trouble taking care of your child, family member or friend?: No Do you have trouble with day-to-day activities such as bathing, preparing meals, shopping, managing finances, etc.?: No Are you currently unemployed and looking for a job?: No Are you interested in more education?: No Please select the resources that you would like help with: None Currently or been in a relationship where the following occur: No concerns reported THRIVE Score: 0 AUDIT C Alcohol Use Questionnaire (AUDIT-C) 1. How often do you have a drink containing alcohol?: Never 3. How often do you have six or more drinks on one occasion?: Never Total Score: 0 JAS-7 AMB Questionnaire JAS-7 Date JAS - 7 assessed: 08/07/24 Feeling nervous, anxious, or on edge: 0 = Not at all Not being able to stop or control worryin = Not at all Worrying too much about different things: 0 = Not at all Trouble relaxin = Not at all Being so restless that it is hard to sit still: 0 = Not at all Becoming easily annoyed or irritable: 0 = Not at all Feeling afraid as if something awful might happen: 0 = Not at all Total JAS-7 score (0-4 normal; 5-9 mild; 10-14 moderate; 15-21 severe): 0 Source: Developed by Drs. Dc Hanna, Vianney Manzo, Ernesto Washington and colleagues, with an educational harris from [employer]. JAS-7 Assessment Billing JAS-7 Assessment Tool: JAS-7 Assessment 51850 ACT Questionnaire In the past 4 weeks, how much of the time did your asthma keep you from getting as much done at work, school or at home?: None of the time During the past 4 weeks, how often have you had shortness of breath?: Not at all During the past 4 weeks, how often did your asthma symptoms wake you up at night or earlier than usual in the morning?: Not at all During the past 4 weeks, how often have you had to use your rescue inhaler or nebulizer medication?: Not at all How would you rate your asthma control during the past 4 weeks?: Completely controlled ACT Interpretation: Negative Score: 25 Review of Systems Const Denies body aches, Denies chills, Denies excessive sweating, Denies fatigue, Denies fever(s) and Denies headache(s) Eyes Denies blurry vision ENT Denies dysphagia, Denies vertigo, Denies dizziness, Denies headache(s), Denies hearing loss and Denies tinnitus Card Denies chest pain, Denies chest pain with activity, Denies syncope, Denies irregular heart rhythm and Denies dyspnea Resp Denies chest congestion, Denies cough, Denies hemoptysis, Denies dyspnea and Denies wheezing GI Denies abdominal pain, Denies melena, Denies hematochezia, Denies coffee ground emesis, Denies dysphagia, Denies diarrhea, Denies nausea and Denies vomiting Denies difficulty urinating, Denies dysuria, Denies urinary frequency, Denies urinary hesitancy and Denies urinary urgency Musc Denies arthralgias, Denies limited range of motion, Denies muscle cramps and Denies muscle weakness Skin/Breast Denies rash and Denies skin ulcer Neuro Denies Abnormal speech present, Denies confusion, Denies vertigo, Denies dizziness, Denies syncope, Denies headache(s), Denies memory loss and Denies seizure-like activity Psych Denies anxiety, Denies confusion, Denies depression, Denies memory loss, Denies panic attacks and Denies paranoia Endo Denies excessive sweating, Denies fatigue, Denies flushing, Denies polydipsia and Denies polyuria Aller/Immun Denies wheezing Physical exam (Primary Care) Vital Signs: Last Vital Signs Pulse 87 08/07/24 11:43 BP 126/78 08/07/24 11:43 Pulse Ox 98 08/07/24 11:43 Oxygen Delivery Method Room Air 08/07/24 11:43 BMI result Body Mass Index 34.1 BMI Assessment/Plan discussion: High BMI High, discussed plan: lifestyle, weight reduction, dietary and physical activity Tobacco/Smoking Status: Tobacco use Status Tobacco use date assessed 08/07/24 08/07/24 11:47 Patient Tobacco Use Status Never used Tobacco 08/07/24 11:44 e-Cigarette/Vaping Use Never Used 08/07/24 11:44 PHQ-9: PHQ-9 Score PHQ-9: Total score 0 08/07/24 13:24 Depression Screening Interpretation: Negative Thrive Assessment: Date of Thrive Assessment Date Thrive assessed 08/07/24 08/07/24 11:47 Currently or been in a relationship where the following occur: No concerns reported Const General: cooperative, comfortable, no acute distress, alert and awake; No confusion Orientation/consciousness: oriented to person, oriented to place, patient oriented x3 and No confusion HENMT Head: Yes normocephalic Ears: external ears normal and TM's normal bilaterally Face and sinus: No sinus tenderness Mouth: Normal oral and palatal mucosa present and tongue normal Teeth and gingiva: dentition normal and gingiva normal Throat: Yes posterior oropharynx normal, Yes tonsils normal and Yes uvula midline Eyes Conjunctivae: conjunctivae normal Sclerae: sclerae normal Pupils: Equal, round and reactive pupils present EOM: EOMs intact bilaterally Direct Ophthalmoscopy: No no photophobia Neck Neck: Yes no lymphadenopathy, No tender and Yes no JVD Thyroid: Thyroid normal Carotids: no bruits Chest Chest palpation & inspection: no tenderness Resp Effort & Inspection: normal respiratory effort, no audible wheezes, not labored and no stridor Auscultation: no crackles, no rales, no rhonchi and no wheezes Cardio Jugular venous distension: no JVD Rate: regular rate, not bradycardic and not tachycardic Rhythm: regular rhythm Bruits: no carotid bruits Peripheral pulses: Peripheral pulses 2+ throughout GI Inspection: Yes normal to inspection, No abdominal wall ecchymosis and No visible herniation Palpation (GI): Soft to palpation, nontender, no guarding, not rigid and No hepatosplenomegaly present Auscultation: normoactive bowel sounds General: Yes no CVA tenderness Back/Spine/Pelvis Back: no CVA tenderness and No back tenderness Cervical Spine: cervical ROM normal Thoracic/Lumbar Spine: thoracic and lumbar spine normal to inspection, straight leg raise negative bilaterally, No thoraco-lumbar ROM limited and No lumbar spinal tenderness Skin Lesions: no lesions Rashes: no rashes Wounds: no wounds Neuro General: oriented to person, oriented to place, patient oriented x3, CN's II-XI intact bilaterally and No confusion Cranial nerves: Yes Equal, round and reactive pupils present and Yes Normal accommodation reflex present Cognition (Neuro): normal cognition Speech: No Abnormal speech present Gait exam (Neuro): Normal gait present Motor exam (neuro): 5/5 motor strength present throughout Extrem Right upper extremity: full ROM; no cyanosis Left upper extremity: full ROM; no cyanosis Right lower extremity: no edema Left lower extremity: no edema Psych Appearance: grossly normal Mental Status: mental status grossly normal Affect: normal affect Attitude: cooperative Thought process: Normal thought process present Office Procedures Flu Questionnaire Does the patient have a severe egg allergy?: No Does the patient have severe life threatening allergies?: No Does the patient have a fever or illness today?: No Has the patient ever had Guillain-[place] Syndrome?: No Has the patient ever had any past reaction to a flu shot?: No Results AMB Hemoglobin A1c AMB Hemoglobin A1c 6.1 % Last Edit by MARCIA Kuo on 08/07/24 11:59 Immunizations Fluarix Triv [id number] (PF) 45 mcg (15 mcg x 3)/0.5 mL IM syringe Performing Provider: Berny Ochoa PA-C [place] [facility] [place] [facility] Documented (not given) by: MARCIA Kuo on 08/07/24 11:44 Reason Not Given: Patient Refused Results Reviewed Results Reviewed: Laboratory Last Values Hgb A1c (Clinic) 6.1 % (4.0-6.0) H 08/07/24 11:59 Coding Level of Care Code Est Pt Prev Care 40-64y(04869) Diagnoses Annual physical exam Z00.00 Class 1 obesity E66.811 Mixed hyperlipidemia E78.2 Hyperlipidemia type: mixed hyperlipidemia Mild intermittent asthma without complication J45.20 Asthma severity: mild Asthma persistence: intermittent Asthma complication type: uncomplicated Additional Codes JAS-7 Assessment Billing - JAS-7 Assessment Tool: JAS-7 Assessment 99092 ([id number]) PHQ-9 - 73175 - PHQ-9 Billing: Yes ([id number]) Asthma Control Questionnaire - ACT Interpretation: Negative ([id number]) Assessment & Plan Assessment & Plan (1) Annual physical exam: Code(s): Z00.00 - Encounter for general adult medical examination without abnormal findings Category: Medical Plan: As per HPI (2) Class 1 obesity: Code(s): E66.811 - Obesity, class 1 Category: Medical Plan: Patient does understand his BMI is over 30 and will like to continue on Wegovy for weight reduction. Also does have comorbidities such as impaired glucose metabolism and hyperlipidemia. (3) HLD (hyperlipidemia): Code(s): E78.5 - Hyperlipidemia, unspecified Category: Medical Qualifiers: Hyperlipidemia type: mixed hyperlipidemia Qualified Code(s): E78.2 - Mixed hyperlipidemia Plan: Patient's most recent lipid panel showing good control of his total cholesterol LDL. He continues on statin therapy without side effect. Goal LDL is to remain below 130 (4) Asthma: Code(s): J45.909 - Unspecified asthma, uncomplicated Category: Medical Qualifiers: Asthma severity: mild Asthma persistence: intermittent Asthma complication type: uncomplicated Qualified Code(s): J45.20 - Mild intermittent asthma, uncomplicated Plan: Patient reports his asthma is well controlled with only p.r.n. use of his albuterol inhaler. No reports of nighttime awakenings with asthma symptoms or recent asthma exacerbations. Orders: Orders Influenza [id number] Immunization 08/07/24 Z23 - Encounter for immunization AMB Hemoglobin A1c 08/07/24 Z13.1 - Encounter for screening for diabetes mellitus Comprehensive [place]. Panel Fast 08/07/24 R73.09 - Other abnormal glucose Lipid Panel 08/07/24 E78.2 - Mixed hyperlipidemia Hemoglobin A1c 08/07/24 R73.09 - Other abnormal glucose Medications: New semaglutide (weight loss) (Wegovy) administer weeks 9 through 12 of therapy 1 mg (0.5 mL) subcut QWEEK 2 mL 0RF 4 weeks E66.811 - Obesity, class 1 On Hold semaglutide (weight loss) (Wegovy) Hold Comment: Doctor's Order 0.5 mg (0.5 mL) subcut QWEEK 4 weeks 2 mL 0RF E66.09 - Other obesity due to excess calories, E78.2 - Mixed hyperlipidemia, R73.09 - Other abnormal glucose, Z68.33 - Body mass index [BMI] 33.0-33.9, adult
== END 2024-08-07 12:09 | disposition home or self-care (01) ==
PROVIDERS: PCP Physician Assistant; Visit Provider Physician Assistant
DX: Z00.00 Encounter for general adult medical examination without abnormal findings (principal); E66.811 Obesity, class 1; Z68.34 Body mass index [BMI] 34.0-34.9, adult; E78.2 Mixed hyperlipidemia; J45.20 Mild intermittent asthma, uncomplicated

== ENCOUNTER → 2024-08-07 10:58 | Outpatient (BNVA) | payer OTHER, SELFPAY | PROVIDERS: PCP Physician Assistant; Visit Provider Physician Assistant | DX: Z00.00 Encounter for general adult medical examination without abnormal findings (principal); E66.811 Obesity, class 1; Z68.34 Body mass index [BMI] 34.0-34.9, adult; E78.2 Mixed hyperlipidemia; J45.20 Mild intermittent asthma, uncomplicated; Z71.3 Dietary counseling and surveillance | CPT/HCPCS: 83036; 90471; 96127; 96160; 99396 ==

== ENCOUNTER 2024-09-03 12:13 | Outpatient (AMB) | payer OTHER, SELFPAY ==
--- NOTE | 2024-09-03 13:12 | AM.OFFWIN_ITS ---
Intake Vital Signs 09/03/24 13:22 Weight 223 lb 2 oz BP 124/80 Blood Pressure Location Rt brachial Position Sitting Pulse 100 Pulse Source Pulse Oximeter Temp 97.5 F Temp Source Temporal Artery Scan Pulse Oximetry (%) 96 Oxygen Delivery Method Room Air Intake Visit Reasons: EP-fever,cough,rt ear pain,[id number] Intake Note: Patient here for cough,fever, right ear pain, headache that started about 10 days ago, Patient Tobacco Use Status: Never used Tobacco Allergies albuterol Adverse Reaction (Unknown, Verified 09/03/24 13:13) vomiting Do you need a note to return to daycare/school/sports/work: No HPI HPI Comments History of Present Illness Details History The patient is a 44-year-old male presenting with symptoms that have persisted for the past ten days. The primary complaints include fever, headache, and right ear pain, accompanied by cough and chills. The patient reports subjective fever, although he has not measured it. There has been no significant relief with [id number] medications such as Claritin, Tuckol, and NyQuil. Additionally, the patient has been experiencing shortness of breath and wheezing, particularly at night. He has a known history of asthma, for which he uses an albuterol inhaler. However, he does not have his inhaler with him at present but has one available at home. The patient denies any shortness of breath during the day but confirms nocturnal wheezing. There are no other sick contacts at home. Physical Exam General: Cooperative, healthy appearing, comfortable and no acute distress Orientation/consciousness: Patient oriented x3 Limitations: No limitations Head: Normal to inspection, reports headaches Ears: Hearing grossly normal bilaterally, external ears normal, left ear very red and infected Nose: Normal external nose present, Normal nares present and No nasal discharge present Face and sinus: Normal facial exam and Yes sinuses nontender Mouth: Normal oral and palatal mucosa present and moist mucous membranes Throat: Yes tonsils normal, Yes uvula midline. Posterior oropharynx erythema Eyes: Appearance normal, both eyes and all related structures Neck: Normal visual inspection Respiratory: Clear to auscultation bilaterally. Normal respiratory effort, able to speak in complete sentences, Actively coughing, no respiratory distress, not tachypneic, no tripod positioning and no use of accessory muscles, reports shortness of breath and wheezing at night Cardiovascular: Regular rate and rhythm. 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 I recommend the patient take Tessalon Perles as a cough suppressant to be taken at bedtime to aid with nocturnal symptoms and improve rest. Rest, adequate hydration, and nutritional support are advised as additional measures to facilitate recovery. Asthma: A refill for his prescription for an albuterol inhaler has been sent to the patient?s pharmacy to manage any emerging asthmatic symptoms, given the rep orted increase in wheezing. The patient should use the inhaler as needed for relief of acute symptoms. Patient was informed and verbally consented to the use of an ambient scribe for clinic note documentation during this visit (2) Otitis media: Code(s): H66.90 - Otitis media, unspecified, unspecified ear Qualifiers: Otitis media type: suppurative Chronicity: acute Laterality: right Recurrence: non-recurrent Spontaneous tympanic membrane rupture: without spontaneous rupture Qualified Code(s): H66.001 - Acute suppurative otitis media without spontaneous rupture of ear drum, right ear Plan: Acute Otitis Media: I will prescribe Amoxicillin to be taken orally twice daily for seven days to alleviate the infection and associated ear pain. This antibiotic treatment should help reduce the URI symptoms if bacterial in origin. Medications: New benzonatate 200 mg PO TID PRN 14 caps 0RF cough amoxicillin 875 mg PO Q12H 14 tabs 0RF Refilled albuterol sulfate 90 mcg/actuation 1 inh inhalation QID 30 days 8.5 grams 3RF shortness of breath or wheezing J45.20 - Mild intermittent asthma, uncomplicated Coding Level of Care Code Est Pt Level 4 (23256) Diagnoses URI, acute J06.9 Non-recurrent acute suppurative otitis media of right ear without spontaneous rupture of tympanic membrane H66.001 Otitis media type: suppurative Chronicity: acute Laterality: right Recurrence: non-recurrent Spontaneous tympanic membrane rupture: without spontaneous rupture
[2024-09-03 13:22] VITALS: BP 124/80; PULSE 100; TEMP 36.4; O2SAT 96
== END 2024-09-03 14:04 | disposition home or self-care (01) ==
PROVIDERS: PCP Physician Assistant; Visit Provider Physician Assistant
DX: J06.9 Acute upper respiratory infection, unspecified (principal); H66.001 Acute suppurative otitis media without spontaneous rupture of ear drum, right ear

== ENCOUNTER → 2024-09-03 12:13 | Outpatient (BNVA) | payer OTHER, SELFPAY | PROVIDERS: PCP Physician Assistant; Visit Provider Physician Assistant | DX: J06.9 Acute upper respiratory infection, unspecified (principal); H66.001 Acute suppurative otitis media without spontaneous rupture of ear drum, right ear | CPT/HCPCS: 99212 ==

== ENCOUNTER 2024-09-10 15:02 | Outpatient (AMB) | payer OTHER, SELFPAY ==
--- NOTE | 2024-09-10 15:48 | MHC.OFFWIV ---
Intake Vital Signs 09/10/24 15:49 Height 5 ft 8 in Weight 223 lb BMI 33.9 BP 124/80 Blood Pressure Location Lt brachial Position Sitting Pulse 124 H Pulse Source Pulse Oximeter Temp 98.1 F Temp Source Oral Pulse Oximetry (%) 96 Oxygen Delivery Method Room Air Intake Visit Reasons: EP ?Ear infection (both) Intake Note: Patient here for bilat ear pain that has been present for about 1 week. He was here last week and was treated for ear infection of right ear and is now having issues w/both. Patient Tobacco Use Status: Never used Tobacco Allergies albuterol Adverse Reaction (Unknown, Verified 09/10/24 15:49) vomiting Do you need a note to return to daycare/school/sports/work: No HPI EP ?Ear infection (both) HPI Details 44-year-old male presents to the office for a sick visit. Patient reports he is having pain in the right ear. Throbbing in nature. He was seen here last week and was diagnosed with an upper respiratory tract infection. Patient is taking Augmentin. 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 Head: Yes normal to inspection Eyes General: appearance normal, both eyes and all related structures Neck Neck: Yes normal visual inspection Chest Chest palpation & inspection: normal palpation of entire chest wall Resp Effort & Inspection: normal respiratory effort Neuro General: patient oriented x3 Assessment & Plan Assessment & Plan (1) Right otitis media: Code(s): H66.91 - Otitis media, unspecified, right ear Qualifiers: Otitis media type: mucoid Chronicity: acute Qualified Code(s): H65.111 - Acute and subacute allergic otitis media (mucoid) (sanguinous) (serous), right ear Plan: Cipro otic and meloxicam added to the regimen. Continue the Augmentin. Coding Level of Care Code Est Pt Level 3 (96871) Diagnoses Acute mucoid otitis media of right ear H65.111 Otitis media type: mucoid Chronicity: acute
[2024-09-10 15:49] VITALS: BP 124/80; PULSE 124; TEMP 36.7; O2SAT 96; BMI 33.9
== END 2024-09-10 16:17 | disposition home or self-care (01) ==
PROVIDERS: PCP Physician Assistant; Visit Provider Internal Medicine
DX: H65.111 Acute and subacute allergic otitis media (mucoid) (sanguinous) (serous), right ear (principal)

== ENCOUNTER → 2024-09-10 15:02 | Outpatient (BNVA) | payer OTHER, SELFPAY | PROVIDERS: PCP Physician Assistant; Visit Provider Internal Medicine | DX: H65.111 Acute and subacute allergic otitis media (mucoid) (sanguinous) (serous), right ear (principal); Z79.2 Long term (current) use of antibiotics | CPT/HCPCS: 99212 ==

== ENCOUNTER 2024-10-09 09:04 | Outpatient (REF) | payer OTHER, SELFPAY ==
[2024-10-09 10:02] LABS: Hematocrit 49.4 % (42.0-52.0); Hemoglobin 16.7 g/dl (14.0-18.0); Mean Corpuscular HGB Conc 33.8 g/dl (31.0-36.0); Mean Corpuscular Hemoglobin 27.8 pg (27.0-33.0); Mean Corpuscular Volume 82.3 fL (80.0-98.0); Mean Platelet Volume 9.4 fL (9.4-12.4); Platelet Count 339 X10*3/uL (160-400); White Blood Count 6.5 X10*3/uL (4.8-10.8)
[2024-10-09 10:29] LABS: Estimated Average Glucose 134 mg/dL; Hemoglobin A1C 195.2445 umol/L; Hemoglobin A1c % 6.3 % (<6.0); Total Hemoglobin (HGBA1C) 4323.0735 umol/L
[2024-10-09 10:33] LABS: Alanine Aminotransferase 77 U/L (0-40); Albumin Level 4.2 g/dL (3.5-5.0); Alkaline Phosphatase 97 U/L (39-117); Anion Gap 8 (12-20); Aspartate Amino Transferase 49 U/L (5-37); Bilirubin Total 0.4 mg/dL (0.0-1.0); Blood Urea Nitrogen 14 mg/dL (9-16); Calcium 9.6 mg/dL (8.4-10.2); Carbon Dioxide 26 mmol/L (22-29); Chloride 110 mmol/L (96-108); Cholesterol 213 mg/dL (<200); Estimated Glomerular Filt Rate > 60; Glucose Fasting 144 mg/dL (60-99); HDL Cholesterol 39 mg/dL (>40); LDL Cholesterol Calculated 151 mg/dL (<100); Potassium 4.4 mmol/L (3.3-5.1); Sodium 140 mmol/L (135-145); Total Protein 8.1 g/dL (6.5-8.0); Triglycerides 115 mg/dL (<150)
== END 2024-10-09 09:05 | disposition home or self-care (01) ==
LOC: HO.LAB 09:04
PROVIDERS: PCP Physician Assistant; Visit Provider Physician Assistant
DX: E11.9 Type 2 diabetes mellitus without complications (principal); R73.09 Other abnormal glucose; E78.2 Mixed hyperlipidemia; Z12.11 Encounter for screening for malignant neoplasm of colon; K21.9 Gastro-esophageal reflux disease without esophagitis
CPT/HCPCS: 36415; 80053; 80061; 83036; 85027; 99202

== ENCOUNTER 2024-10-09 10:24 | Outpatient (AMB) | payer OTHER, SELFPAY ==
--- NOTE | 2024-10-09 10:26 | MHC.OFFVIS ---
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 N Concerns/Questions? GERD uncontrolled with PPI currently. Allergies albuterol Adverse Reaction (Unknown, Verified 10/09/24 10:26) vomiting HPI HPI GI CONSULT: Details: 44-year-old male with past medical history GERD, carpal tunnel syndrome of left wrist, obesity, hyperlipidemia is here today for pre colonoscopy screening.? Patient was sent to us by his PCP.? This is his first colonoscopy screening.? Patient reports acid reflux. Patient is on omeprazole, however reports that the medication is not helping. ? Denies any personal or family history of gastrointestinal disease, colon polyps, or CRC.? Patient reports that he never had anesthesia in the past.? Negative for history of sleep apnea.? Denies any history of cardiac, renal, pulmonary, or hepatic disease.?? No history of infectious? diseases like hepatitis A, B, C, HIV or tuberculosis.? 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 Cognitive needs: No Hearing needs: No Vision needs: No Physical Exam Vital Signs: Last Vital Signs Pulse 80 10/09/24 10:32 BP 132/86 10/09/24 10:32 Pulse Ox 97 10/09/24 10:32 Oxygen Delivery Method Room Air 10/09/24 10:32 BMI result Body Mass Index 33.9 Assessment & Plan Assessment & Plan (1) Colon cancer screening: Code(s): Z12.11 - Encounter for screening for malignant neoplasm of colon Category: Medical (2) GERD (gastroesophageal reflux disease): Code(s): K21.9 - Gastro-esophageal reflux disease without esophagitis Category: Medical Qualifiers: Esophagitis presence: without esophagitis Qualified Code(s): K21.9 - Gastro-esophageal reflux disease without esophagitis Plan Patient denies any cardiac or respiratory symptoms.? Patient reports acid reflux on omeprazole, however reports that it is not helping. Will send script for pantoprazole and patient will be sent for upper endoscopy to rule out gastritis, duodenitis, esophagitis, gastric or peptic ulcer, H pylori. Patient never had anesthesia in the past. Denies any history of sleep apnea.? No history infectious diseases in the past or present.? Not on any anticoagulation therapy.? No family or personal history of colon cancer or polyps.? Patient denies melena, hematochezia, unintentional weight loss or ribbon like stools.? Discussed at length the pre-procedure,? prep, diet & medications as well as what to expect prior, during and after the procedure.?? Stressed the importance of good bowel prep.? Recommended the use of Vaseline or Calmoseptine OTC & baby wipes with bowel movements to promote comfort.? ?Patient verbalizes understanding and agrees to plan of care.? He was given the opportunity to ask questions and all questions answered.? We will see him after the procedure.? Medications: New polyethylene glycol 3350 (Miralax) As directed by gastroenterology department at [facility] 238 grams PO ONCE 238 grams 0RF Z12.11 - Encounter for screening for malignant neoplasm of colon bisacodyl (Dulcolax (bisacodyl)) take 4 tabs at noon the day before your colonoscopy 20 mg (4 x 5 mg) PO ONCE 1 day 4 tabs 0RF Z12.11 - Encounter for screening for malignant neoplasm of colon Discontinued omeprazole Discontinued Reason: Doctor's Order 20 mg PO DAILY 20 days 30 caps 0RF K21.9 - Gastro-esophageal reflux disease without esophagitis Coding Level of Care Code New Pt Level 3 (00153) Diagnoses Colon cancer screening Z12.11 Gastroesophageal reflux disease without esophagitis K21.9 Esophagitis presence: without esophagitis Time Spent (min) 40 Comment 30 minutes spent with patient and additional 10 minutes spent reviewing his records
[2024-10-09 10:32] VITALS: BP 132/86; PULSE 80; O2SAT 97; BMI 33.9
== END 2024-10-09 15:23 | disposition home or self-care (01) ==
PROVIDERS: PCP Physician Assistant; Visit Provider Nurse Practitioner Family
DX: K21.9 Gastro-esophageal reflux disease without esophagitis (principal); Z12.11 Encounter for screening for malignant neoplasm of colon; Z01.818 Encounter for other preprocedural examination
CPT/HCPCS: 99203

== ENCOUNTER 2024-10-25 09:45 | Outpatient (REF) | payer SELFPAY ==
--- OUTSIDE RECORDS SUMMARY | 2024-10-25 10:22 | XMS_ITS | Clinical Summary ---
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 02/25/20 24 Active ibuprofen 600 MG tablet Take 1 tablet (600 mg) by mouth every 6 (six) hours if needed for mild pain for up to 20 doses. 20 tablet 05/03/20 24 Active metFORMIN XR (Glucophage-X R) 500 MG 24 hr tablet Take 500 mg by mouth Once per day. 06/28/20 24 Active Wegovy 0.5 MG/0.5ML solution auto-injector INJECT 0.5 MG (0.5 ML) SUBCUTANEOUSLY EVERY WEEK FOR 4 WEEKS 05/24/20 24 Active acetaminophen (Tylenol) 500 MG tablet Take 1 tablet (500 mg) by mouth every 6 (six) hours if needed for mild pain for up to 20 doses. 20 tablet 05/03/20 24 2024 Discontinued acetaminophen (Tylenol) 500 MG tablet Take 1 tablet (500 mg) by mouth every 6 (six) hours if needed for mild pain for up to 10 days. 30 tablet 10/10/19 25 2024 ibuprofen 600 MG tablet Take 1 tablet (600 mg) by mouth every 6 (six) hours for 10 days. 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 Encounters Date Type Department Care Team Description 10/23/2024 3:00 PM EST Office Visit [facility] ADULT DENTAL [address] [place] [address] Daniela Mccormick Dental plaque (Primary Dx); Dental calculus; Subgingival dental calculus 10/18/2024 1:00 PM EST Office Visit [facility] ADULT DENTAL [address] [place] [address] Cristo Moody 10/11/2024 1:00 PM EST Office Visit [facility] ADULT DENT[facility] [address] [place] [address] Paolo Cardoza, DDS Severe dental caries (Primary Dx); Non-restorable tooth 10/10/2024 10:00 AM EST Office Visit [facility] [address] [facility] [place] [address] Paolo Cardoza, DDS Severe dental caries (Primary Dx); Non-restorable tooth 07/29/2024 1:00 PM EST Office Visit [facility] ADULT DENTAL [address] [place] [address] Jason Smith DMD from Last 3 Months Social History Tobacco Use Types Packs/Day Years Used Date Smoking Tobacco: Never Passive Smoke Exposure: Never Smokeless Tobacco: Never Tobacco Cessation:Counseling Given: Not Answered Alcohol Use Standard Drinks/Week Comments Never 0 (1 standard drink = 0.6 oz pur e alcohol) Sex and Gender Information Value Date Recorded Sex Assigned at Male 04/03/2024 8:10 AM EDT Legal Sex Male 4:03 PM EST Gender Identity Male 04/03/2024 8:10 AM EDT Sexual Orientation Choose not to disclose 2023 8:10 AM EDT Last Filed Vital Signs Vital Sign Reading Time Taken Comments Blood Pressure 128/84 10/23/2024 3:13 PM EST Pulse - - Temperature - - Respiratory Rate - - Oxygen Saturation - - Inhaled Oxygen Concentration - - Weight - - Height - - Body Mass Index - - Plan of Treatment Health Maintenance Due Date Last Done Comments CT Colonography 1979 Colonoscopy 1979 Colorectal Cancer Screening 1979 Dental Oral Exam 1979 Depression Screening 1979 FIT DNA/Cologuard 1979 FIT 1979 FOBT 1979 HIV Screening 1979 Lipid Panel 1979 SDOH Screening 1979 Sigmoidoscopy 1979 Alcohol/Substance Use Screening 1991 Family Planning (PISQ) 1994 Hepatitis C Screening 1997 DTaP/Tdap/Td Vaccines (1 - Tdap) 1998 Hepatitis B Vaccines (1 of 3 - 19+ 3-dose series) 1998 COVID-19 Vaccine (5 - 2023- season) 2024 08/11/2022, 08/09/2021, 01/17/2021, Additional history exists Influenza Vaccine (#1) 2024 07/26/2023 Dental Prophylaxis 04/23/2025 10/23/2024 Dental X-Ray: Bitewings 10/19/2025 10/18/2024, 07/29 Tobacco Screening 10/23/2025 10/23/2024 Dental X-Ray: Full Mouth 10/19/2027 10/18/2024, 03/25 Zoster Vaccines (1 of 2) 2029 RSV Patients and Patients Aged 60 years or older (1 - 1-dose 75+ series) 2054 HIB Vaccines Aged Out No longer eligi ble based on patient's age to complete this topic HPV Vaccines Aged Out No longer eligi ble based on patient's age to complete this topic Hepatitis A Vaccines Aged Out No long er eligible based on patient's age to complete this topic IPV Vaccines Aged Out No longer eligi ble based on patient's age to complete this topic Meningococcal Vaccine Aged Out No il[place] parish eligible based on patient's age to complete this topic Pneumococcal Vaccine: Pediatrics (0 to 5 Years) and At-Risk Patients (6 to 49) Years) Aged Out No longer eligible based on patient's age to complete this topic RSV under 20 months Aged Out No longe r eligible based on patient's age to complete this topic Rotavirus Vaccines Aged Out No longer eligible based on patient's age to complete this topic Procedures Procedure Name Priority Date/Time Associated Diagnosis Comments ADJUNCTIVE GENERAL SERVICES - PROFESSIONAL VISITS - CASE PRESENTATION, SUBSEQUENT TO DETAILED AND EXTENSIVE TREATMENT PLANNING Routine 10/23/2024 3:00 PM EST ORAL HYGIENE INSTRUCTIONS Routine 2024 3:00 PM EST Dental plaque Dental calculus Subgingival dental calculus PROPHYLAXIS - ADULT Routine 10/23/2024 3 :00 PM EST Dental plaque Dental calculus Subgingival dental calculus DIAGNOSTIC - DIAGNOSTIC IMAGING - INTRAORAL - COMPREHENSIVE SERIES OF RADIOGRAPHIC IMAGES Routine 10/18/2024 1:00 PM EST 1,2,3,4,5,6,7,8,9,10,11,1 2,13,14,15,16,17,18,19,20 ,21,22,23,24,25,26,27,28, 29,30,31,32 LIMITED ORAL EVALUATION - PROBLEM FOCUSED Routine 10/18/2024 1:00 PM EST OFFICE VISIT FOR OBSERVATION (DURING REGULARLY SCHEDULED HOURS) - NO OTHER SERVICES PERFORMED Routine 10/18/2024 1:00 PM EST 31 EXTRACTION, ERUPTED TOOTH OR EXPOSED ROOT (ELEVATION AND/OR FORCEPS REMOVAL) Routine 10/11/2024 1:00 PM EST ADJUNCTIVE GENERAL SERVICES - PROFESSIONAL VISITS - CASE PRESENTATION, SUBSEQUENT TO DETAILED AND EXTENSIVE TREATMENT PLANNING Routine 10/11/2024 1:00 PM EST ADJUNCTIVE GENERAL SERVICES - PROFESSIONAL VISITS - CASE PRESENTATION, SUBSEQUENT TO DETAILED AND EXTENSIVE TREATMENT PLANNING Routine 10/10/2024 10:00 AM EST LIMITED ORAL EVALUATION - PROBLEM FOCUSED Routine 10/10/2024 10:00 AM EST ADJUNCTIVE GENERAL SERVICES - PROFESSIONAL VISITS - CASE PRESENTATION, SUBSEQUENT TO DETAILED AND EXTENSIVE TREATMENT PLANNING Routine 07/29/2024 1:00 PM EST BITEWING - SINGLE RADIOGRAPHIC IMAGE Routine 07/29/2024 1:00 PM EST ADJUNCTIVE GENERAL SERVICES - UNCLASSIFIED TREATMENT - PALLIATIVE TREATMENT OF DENTAL PAIN - PER VISIT Routine 07/29/2024 1:00 PM EST 31 INTRAORAL - PERIAPICAL FIRST RADIOGRAPHIC IMAGE Routine 07/29/2024 1:00 PM EST from Last 3 Months Insurance DENTAL - HSN FULL (MEDICAID)
--- OUTSIDE RECORDS SUMMARY | 2024-10-25 10:22 | XMS_ITS | Encounter Summary ---
Author Organization [employer] Address [address] [facility] [address] [place] [address] Care Team Providers Care Advertising Designer Name Role Phone Unavailable Primary Care Provider Unavailabl e Reason for Visit * Reason Comments Dental Exam comp Encounter Details Date Type Department Care Team (Late st Contact Info) Description 10/18/2024 1:00 PM EST Office Visit [facility] ADULT DENTAL [address] [place] [address] Cristo Moody Social History Tobacco Use Types Packs/Day Years Used Date Smoking Tobacco: Never Passive Smoke Exposure: Never Smokeless Tobacco: Never Alcohol Use Standard Drinks/Week Comments Never 0 (1 standard drink = 0.6 oz pur e alcohol) Sex and Gender Information Value Date Recorded Sex Assigned at Male 04/03/2024 8:10 AM EDT Legal Sex Male 4:03 PM EST Gender Identity Male 04/03/2024 8:10 AM EDT Sexual Orientation Choose not to disclose 2023 8:10 AM EDT documented as of this encounter Last Filed Vital Signs Vital Sign Reading Time Taken Comments Blood Pressure 114/80 10/18/2024 1:06 PM EST Pulse - - Temperature - - Respiratory Rate - - Oxygen Saturation - - Inhaled Oxygen Concentration - - Weight - - Height - - Body Mass Index - - documented in this encounter Progress Notes * Cristo Moody - 10/18/2024 1:00 PM EST Dental procedures in this visit D0140 - LIMITED ORAL EVALUATION - PROBLEM FOCUSED 1,2,3,4,5,6,7,8,9,10,11,12,13,14,15,16,17,18,19,20 ,21,22,23,24,25,26,27,28,29,30,31,32 (Completed) Service provider: Cristo Moody Billing provider: Paolo Cardoza DDS D0210 - DIAGNOSTIC - DIAGNOSTIC IMAGING - INTRAORAL - COMPREHENSIVE SERIES OF RADIOGRAPHIC IMAGES (Completed) Service provider: Cristo Moody Billing provider: Paolo Cardoza DDS D9430 - OFFICE VISIT FOR OBSERVATION (DURING REGULARLY SCHEDULED HOURS) - NO OTHER SERVICES PERFORMED (Completed) Service provider: Cristo Moody Billing provider: Paolo Cardoza DDS Patient ID: Jimi Ghotra is a 44 y.o. male. Time Out: Timeout Date: 10/18/24, Timeout Time: 1304 (comp) Location: [facility] Tooth: UR, LR, UL, and LL Procedure: Exam and X-rays Verified the above with patient, visitor services information assistant, and provider. Confirmed via patient's chart, intraorally and by radiographs. Light Cleaner: not applicable Chief Complaint Patient presents with Dental Exam comp Medical Hx: Vitals: Blood pressure 114/80. Past Medical History: Diagnosis Date Diabetes mellitus ([facility]) Medications: Outpatient Encounter Medications as of 10/18/2024 Medication Sig Dispense Refill acetaminophen (Tylenol) 500 MG tablet Take 1 tablet (500 mg) by mouth every 6 (six) hours if neededfor mild pain for up to 10 days. 30 tablet 0 ibuprofen 600 MG tablet Take 1 tablet (600 mg) by mouth every 6 (six) hours for 10 days. 40 tablet 0 metFORMIN XR (Glucophage-XR) 500 MG 24 hr tablet Take 500 mg by mouth Once per day. rosuvastatin (Crestor) 10 MG tablet Take 10 mg by mouth Once per day. Wegovy 0.5 MG/0.5ML solution auto-injector INJECT 0.5 MG (0.5 ML) SUBCUTANEOUSLY EVERY WEEK FOR 4 WEEKS ibuprofen 600 MG tablet Take 1 tablet (600 mg) by mouth every 6 (six) hours if needed for mild painfor up to 20 doses. 20 tablet 0 No facility-administered encounter medications on file as of 10/18/2024. Objective HPI Soft Tissue Exam No findings documented this visit Head and Neck Exam: Lymph Nodes, Lips, Palate, Buccal Mucosa, Floor of Mouth, Tongue, Tonsils, Alveolar Ridges, Oropharynx, Salivary Ducts, and Vestibules Details: Aphthous ulcer on palate, no other lesions noted in mucosa, gingiva, oropharynx area. No swelling or lesion floor of mouth. OCS: negative Dental Exam Radiographic Interpretation: Associated radiographs for today's visit were reviewed and finding(s) were discussed with the patient. Findings include: 4 bitewing x-rays, PA tooth 1-32 rampant caries on multiple teeth (see tooth chart) Oral Cancer Risk: Low Risk Oral Hygiene Instructions: [place] two times daily, modified brown technique, Floss daily, Soft bristle toothbrush, [place] Tongue Caries Risk Assessment: High- two or more risk factors Assessment found multiple carious lesions underneath veneers. Patient was informed that we will attempt to restore the teeth, but that their veneers might dislodge and we would have to crown the teeth. Patient was also informed that for multiple teeth, veneer dislodgement would require RCT and , and if those options are no feasible, extraction. Patient said they only had a partial denturefor their lower teeth. Assessment/Plan Patient tolerated procedure well, all questions answered and expressed understanding. Dismissed in good condition. NV: Corie Finisher Special Stocks: Carmen Dobson Dentist: Cristo Moody documented in this encounter Plan of Treatment Scheduled Orders Name Type Priority Associated Diagnoses Orde r Schedule 4 4 FIXED PARTIAL DENTURE - ABUTMENT CROWN Dental Routine 1 Occurrences s tarting 10/18/2024 6 6 FIXED PARTIAL DENTURE - ABUTMENT CROWN Dental Routine 1 Occurrences s tarting 10/18/2024 5 5 FIXED PARTIAL DENTURE - PONTIC Dental Routine [address] arting 10/18/2024 7 ML 7 ML RESTORATIVE - RESIN-BASED COMPOSITE RESTORATIONS - DIRECT - RESIN-BASED COMPOSITE - TWO SURFACES, ANTERIOR Dental Routine 1 Occurr ences starting 10/18/2024 8 MIL 8 MIL RESTORATIVE - RESIN-BASED COMPOSITE RESTORATIONS - DIRECT - RESIN-BASED COMPOSITE - THREE SURFACES, ANTERIOR Dental Routine 1 Occu rrences starting 10/18/2024 10 MDL 10 MDL RESTORATIVE - RESIN-BASED COMPOSITE RESTORATIONS - DIRECT - RESIN-BASED COMPOSITE - THREE SURFACES, ANTERIOR Dental Routine 1 Occu rrences starting 10/18/2024 11 MDL 11 MDL RESTORATIVE - RESIN-BASED COMPOSITE RESTORATIONS - DIRECT - RESIN-BASED COMPOSITE - THREE SURFACES, ANTERIOR Dental Routine 1 Occu rrences starting 10/18/2024 15 MOD 15 MOD RESTORATIVE - RESIN-BASED COMPOSITE RESTORATIONS - DIRECT - RESIN-BASED COMPOSITE - THREE SURFACES, POSTERIOR Dental Routine [address] arting 10/18/2024 23 MF 23 MF RESTORATIVE - RESIN-BASED COMPOSITE RESTORATIONS - DIRECT - RESIN-BASED COMPOSITE - TWO SURFACES, ANTERIOR Dental Routine 1 Occurr ences starting 10/18/2024 24 MDF 24 MDF RESTORATIVE - RESIN-BASED COMPOSITE RESTORATIONS - DIRECT - RESIN-BASED COMPOSITE - THREE SURFACES, ANTERIOR Dental Routine 1 Occu rrences starting 10/18/2024 25 MDF 25 MDF RESTORATIVE - RESIN-BASED COMPOSITE RESTORATIONS - DIRECT - RESIN-BASED COMPOSITE - THREE SURFACES, ANTERIOR Dental Routine 1 Occu rrences starting 10/18/2024 26 MF 26 MF RESTORATIVE - RESIN-BASED COMPOSITE RESTORATIONS - DIRECT - RESIN-BASED COMPOSITE - TWO SURFACES, ANTERIOR Dental Routine 1 Occurr ences starting 10/18/2024 27 MDF 27 MDF RESTORATIVE - RESIN-BASED COMPOSITE RESTORATIONS - DIRECT - RESIN-BASED COMPOSITE - THREE SURFACES, ANTERIOR Dental Routine 1 Occu rrences starting 10/18/2024 28 MO 28 MO RESTORATIVE - RESIN-BASED COMPOSITE RESTORATIONS - DIRECT - RESIN-BASED COMPOSITE - TWO SURFACES, POSTERIOR Dental Routine 1 Occur rences starting 10/18/2024 29 MO 29 MO RESTORATIVE - RESIN-BASED COMPOSITE RESTORATIONS - DIRECT - RESIN-BASED COMPOSITE - TWO SURFACES, POSTERIOR Dental Routine 1 Occur rences starting 10/18/2024 17 17 EXTRACTION, ERUPTED TOOTH OR EXPOSED ROOT (ELEVATION AND/OR FORCEPS REMOVAL) Dental Routine [address] 10/18/2024 18 MOD 18 MOD RESTORATIVE - RESIN-BASED COMPOSITE RESTORATIONS - DIRECT - RESIN-BASED COMPOSITE - THREE SURFACES, POSTERIOR Dental Routine [address] 10/18/2024 12 MOD 12 MOD RESTORATIVE - RESIN-BASED COMPOSITE RESTORATIONS - DIRECT - RESIN-BASED COMPOSITE - THREE SURFACES, POSTERIOR Dental Routine [address] arting 10/18/2024 13 MOD 13 MOD RESTORATIVE - RESIN-BASED COMPOSITE RESTORATIONS - DIRECT - RESIN-BASED COMPOSITE - THREE SURFACES, POSTERIOR Dental Routine [address] arting 10/18/2024 documented as of this encounter Procedures Procedure Name Priority Date/Time Associated Diagnosis Comments OFFICE VISIT FOR OBSERVATION (DURING REGULARLY SCHEDULED HOURS) - NO OTHER SERVICES PERFORMED Routine 10/18/2024 1:00 PM EST 1,2,3,4,5,6,7,8,9,10,11,1 2,13,14,15,16,17,18,19,20 ,21,22,23,24,25,26,27,28, 29,30,31,32 LIMITED ORAL EVALUATION - PROBLEM FOCUSED Routine 10/18/2024 1:00 PM EST DIAGNOSTIC - DIAGNOSTIC IMAGING - INTRAORAL - COMPREHENSIVE SERIES OF RADIOGRAPHIC IMAGES Routine 10/18/2024 1:00 PM EST documented in this encounter Visit Diagnoses Not on filedocumented in this encounter
--- OUTSIDE RECORDS SUMMARY | 2024-10-25 10:22 | XMS_ITS | Encounter Summary ---
Author Organization [employer] Address [address] [facility] [address] [place] [address] Care Team Providers Care Guard Immigration Name Role Phone Unavailable Primary Care Provider Unavailabl e Reason for Visit * Reason Comments Extraction Encounter Details Date Type Department Care Team (Late st Contact Info) Description 10/11/2024 1:00 PM EST Office Visit [facility] ADULT DENTAL [address] [place], [place] [phone] Paolo Cardoza, ABRAHAMS [address] [place], [place] [id number] Severe dental caries (Primary Dx); Non-restorable tooth Social History Tobacco Use Types Packs/Day Years [...] Sign Reading Time Taken Comments Blood Pressure 118/80 10/11/2024 1:00 PM EST Pulse - - Temperature - - Respiratory Rate - - Oxygen Saturation - - Inhaled Oxygen Concentration - - Weight - - Height - - Body Mass Index - - documented in this encounter Progress Notes * Cristo Moody - 10/11/2024 1:00 PM EST Patient ID: Jimi Ghotra is a 44 y.o. male. Time Out: Timeout Date: 10/11/24, Timeout Time: 1258 (ext #31) Location: [facility] Tooth: #31 Procedure: Extraction Verified the above with patient, visitor services information assistant, and provider. Confirmed via patient's chart, intraorally and by radiographs. Home Visit Field Care Manager: not applicable Chief Complaint Patient presents with Extraction Medical Hx: Vitals: Blood pressure 118/80. Past Medical History: Diagnosis Date Diabetes mellitus ([facility]) Medications: Outpatient Encounter Medications as of 10/11/2024 Medication Sig Dispense Refill acetaminophen (Tylenol) 500 MG tablet Take 1 tablet (500 mg) by mouth every 6 (six) hours if neededfor mild pain for up to 10 days. 30 tablet 0 ibuprofen 600 MG tablet Take 1 tablet (600 mg) by mouth every 6 (six) hours if needed for mild painfor up to 20 doses. 20 tablet 0 ibuprofen 600 MG tablet Take [...] ML) SUBCUTANEOUSLY EVERY WEEK FOR 4 WEEKS [DISCONTINUED] acetaminophen (Tylenol) 500 MG tablet Take 1 tablet (500 mg) by mouth every 6 (six) hours if needed for mild pain for up to 20 doses. 20 tablet 0 No facility-administered encounter medications on file as of 10/11/2024. Consent Obtained: The risks, benefits, indications, potential complications, and alternatives were explained to the patient and informed consent was obtained with good understanding. Treatment Provided: Dental procedures in this visit D7140 - EXTRACTION, ERUPTED TOOTH OR EXPOSED ROOT (ELEVATION AND/OR FORCEPS REMOVAL) 31 Diagnosis: Unrestorable #31 Topical: 20% Benzocaine Anesthesia: 2% Lidocaine (Xylocaine) w/ 1:100,000 epinephrine Number of Cartridges: 5 Injection Type: Buccal infiltration, Inferior alveolar nerve block, and Local Confirmed profound anesthesia. Pharyngeal curtain and bite block placed. Removed tooth with elevators and forceps. Apices intact. Surgical Extraction: Yes, sectioned tooth with surgical handpiece and bur Socket curetted & irrigated with sterile water. Compressed alveolar bone. Sutures: Chromic Gut All adjacent teeth intact. Hemostasis achieved. Complications: Patient was difficult to anesthetize, used 5 carpules of lidocane Written and verbal post-op instructions given. Patient discharged in stable condition; ambulatory, alert, and oriented. NV: Follow up [employer] evaluator transfer students: Carmen Wong Dentist: Cristo Moody documented in this encounter Plan of Treatment Not on file documented as of this encounter Procedures Procedure Name Priority Date/Time Associated Diagnosis Comments 31 EXTRACTION, ERUPTED TOOTH OR EXPOSED ROOT (ELEVATION AND/OR FORCEPS REMOVAL) Routine 10/11/2024 1:00 PM EST ADJUNCTIVE GENERAL SERVICES - PROFESSIONAL VISITS - CASE PRESENTATION, SUBSEQUENT TO DETAILED AND EXTENSIVE TREATMENT PLANNING Routine 10/11/2024 1:00 PM EST documented in this encounter Visit Diagnoses Diagnosis Severe dental caries- Primary Non-restorable tooth documented in this encounter
--- OUTSIDE RECORDS SUMMARY | 2024-10-25 10:22 | XMS_ITS | Encounter Summary ---
Author Organization [employer] Address [address] [facility] [address] [place] [address] Care Team Providers Care Children'S Tutor Name Role Phone Unavailable Primary Care Provider Unavailabl e Reason for Visit * Reason Comments Routine Cleaning Encounter Details Date Type Department Care Team (Late st Contact Info) Description 10/23/2024 3:00 PM EST Office Visit [facility] ADULT DENTAL [address] [place] [address] Daniela Mccormick Dental plaque (Primary Dx); Dental calculus; Subgingival dental calculus Social History Tobacco Use Types Packs/Day Years [...] encounter Progress Notes * Cristo Moody - 10/23/2024 3:00 PM EST * Daniela Mccormick - 10/23/2024 3:00 PM EST Patient ID: Jimi Grey Edu Ghotra is a 44 y.o. male. Time Out: Timeout Date: 10/23/24, Timeout Time: 1512 (Dental Prophy Adult) Location: [facility] Tooth: Maxilla and Mandible Procedure: Prophylaxis Verified the above with patient, production assistant, and provider. Confirmed via patient's chart, intraorally and by radiographs. Enrober: not applicable Medical Hx: Vitals: Blood pressure 128/84. Medications, Med Hx reviewed with patient and updated in chart. Treatment Provided Dental procedures in this visit D1110 - PROPHYLAXIS - ADULT (Completed) Service provider: Daniela Mccormick Billing provider: Paolo Cardoza DDS D1330 - ORAL HYGIENE INSTRUCTIONS (Completed) Service provider: Daniela Mccormick Billclaudia provider: Paolo Cardoza DDS D9450 - ADJUNCTIVE GENERAL SERVICES - PROFESSIONAL VISITS - CASE PRESENTATION, SUBSEQUENT TO DETAILED AND EXTENSIVE TREATMENT PLANNING (Completed) Service provider: Daniela Mccormick Billclaudia provider: Paolo Cardoza DDS Instruments Used: Ultrasonic Scalers, Hand Scalers, and floss Fluoride: N/A Oral Cancer Screening: No lesions Head/Neck Exam: No Lesions Calculus: Heavy, Generalized, and Subgingival Plaque: Moderate and Generalized Stain: Moderate and Generalized Bleeding: Moderate and Generalized Gingiva: Perio Charting Completed, Bleeding on probing, Edematous, and Erythematous OH: Poor Perio Chart: Completed Oral hygiene instructions provided to patient including brushing technique and flossing. Recommendations: Fayette two times daily, modified brown technique, Floss daily, Electric toothbrush, Soft bristle toothbrush, Fayette Tongue, Anti-sensitivity toothpaste Recall Frequency: 6 mo NV: 6mrc Hygienist: Daniela Mccormick RDH documented in this encounter Plan of Treatment Not on file documented as of this encounter Procedures Procedure Name Priority Date/Time Associated Diagnosis Comments PROPHYLAXIS - ADULT Routine 10/23/2024 3 :00 PM EST Dental plaque Dental calculus Subgingival dental calculus ORAL HYGIENE INSTRUCTIONS Routine 10/23/2024 3:00 PM EST Dental plaque Dental calculus Subgingival dental calculus ADJUNCTIVE GENERAL SERVICES - PROFESSIONAL VISITS - CASE PRESENTATION, SUBSEQUENT TO DETAILED AND EXTENSIVE TREATMENT PLANNING Routine 10/23/2024 3:00 PM EST documented in this encounter Visit Diagnoses Diagnosis Dental plaque- Primary Accretions on teeth Dental calculus Accretions on teeth Subgingival dental calculus Accretions on teeth documented in this encounter
--- OUTSIDE RECORDS SUMMARY | 2024-10-25 10:22 | XMS_ITS | Encounter Summary ---
Author Organization [employer] Address [address] [facility] [address] [place] [address] Care Team Providers Care Labelling Machine Operator Name Role Phone Unavailable Primary Care Provider Unavailabl e Encounter Details Date Type Department Care Team (Late st Contact Info) Description 10/10/2024 10:00 AM EST Office Visit [facility] ADULT DENTAL [address] [place], [place] [phone] Paolo Cardoza DDS [address] [place] [address] Severe dental caries (Primary Dx); Non-restorable tooth [...] AM EDT documented as of this encounter Progress Notes * Cristo Moody - 10/10/2024 10:00 AM EST C/C: pain at LR molar I.O.E: sensitive to percussion of #31, sensitive to cold, severe carious tooth#31 E.O.E: No swelling or pain on palpation in zoroastrianism, masseter, neck area Radiographic: severe carious tooth#31 Dx: Unrestorable #31 Tx: exo#31, exam ,prophy Meds: Ibuprophen 600 mg x40 Tylenol 500mg x 15 tabs NV: ext #31 [employer] student documented in this encounter Plan of Treatment Not on file documented as of this encounter Procedures Procedure Name Priority Date/Time Associated Diagnosis Comments LIMITED ORAL EVALUATION - PROBLEM FOCUSED Routine 10/10/2024 10:00 AM EST ADJUNCTIVE GENERAL SERVICES - PROFESSIONAL VISITS - CASE PRESENTATION, SUBSEQUENT TO DETAILED AND EXTENSIVE TREATMENT PLANNING Routine 10/10/2024 10:00 AM EST documented in this encounter Visit Diagnoses Diagnosis Severe dental caries- Primary Non-restorable tooth documented in this encounter
[2024-10-25 11:04] LABS: Alanine Aminotransferase 67 U/L (0-40); Albumin Level 4.5 g/dL (3.5-5.0); Alkaline Phosphatase 101 U/L (39-117); Anion Gap 12 (12-20); Aspartate Amino Transferase 40 U/L (5-37); Bilirubin Direct 0.2 mg/dL (0.0-0.5); Bilirubin Total 0.8 mg/dL (0.0-1.0); Blood Urea Nitrogen 16 mg/dL (9-16); Calcium 9.9 mg/dL (8.4-10.2); Carbon Dioxide 26 mmol/L (22-29); Chloride 108 mmol/L (96-108); Estimated Glomerular Filt Rate > 60; Glucose Fasting 124 mg/dL (60-99); Potassium 4.1 mmol/L (3.3-5.1); Sodium 142 mmol/L (135-145); Total Protein 8.7 g/dL (6.5-8.0)
== END 2024-10-25 09:46 | disposition home or self-care (01) ==
LOC: HO.LAB 09:45
PROVIDERS: PCP Physician Assistant; Visit Provider Physician Assistant
DX: R73.09 Other abnormal glucose (principal); R74.8 Abnormal levels of other serum enzymes
CPT/HCPCS: 36415; 80053; 80076; 82248

== ENCOUNTER 2024-11-27 08:57 | Outpatient (REF) | payer OTHER, SELFPAY ==
--- NOTE | ~2024-11-27 | US_ITS ---
CLINICAL HISTORY: R74.8 - ELEVATED LIVER ENZYMES US Abdomen complete With portal and hepatic vein and kidney color Doppler Comparison: None Findings: The visualized pancreas is normal The aorta and inferior vena cava are normal caliber The liver measures 17.3 cm in length. Liver echotexture is homogeneous. There is no intrahepatic bile duct dilatation. The common duct is mm in diameter The gallbladder is normal in size. Multiple gallstones are present. Gallbladder wall thickness is normal, 2 mm . Common bile duct diameter is 7 mm The right kidney is normal, 11.9cm in length The left kidney is normal, 11.0 cm in length. Bilateral kidney cortical thickness and echotexture is normal. No hydronephrosis. No intrarenal calculi. The spleen is normal, 11.2cm in length No ascites. Impression: Cholelithiasis. The pancreas is incompletely visualized due to bowel gas. This document has been electronically signed by: Lawrence Quintana MD on 11/27/2024 21:12:48
--- OUTSIDE RECORDS SUMMARY | 2024-11-27 09:47 | XMS_ITS | Clinical Summary ---
Author Organization [email or web address] Address [address] [facility] [address] [place] [address] Care Team Providers Care Rapier Insertion Loom Fixer Name Role Phone Unavailable Primary Care Provider Unavailabl e Allergies No known active allergies Medications rosuvastatin (Crestor) 10 MG tablet Take 10 mg by mouth Once per day. 4 Active ibuprofen 600 MG tablet Take 1 tablet (600 mg) by mouth every 6 (six) hours if needed for mild pain for up to 20 doses. 20 tablet 4 Active metFORMIN XR (Glucophage-XR ) 500 MG 24 hr tablet Take 500 mg by mouth Once per day. 4 Active Wegovy 0.5 MG/0.5ML solution auto-injector INJECT 0.5 MG (0.5 ML) SUBCUTANEOUSLY EVERY WEEK FOR 4 WEEKS 4 Active Active Problems Problem Noted Date Diagnosed Date Severe dental caries 05/03/2024 Non-restorable tooth 05/03/2024 Encounters Date Type Department Care Team Description 10/23/2024 3:00 PM EST Office Visit [facility] ADULT DENTAL [address] [place] [address] Daniela Mccormick Dental plaque (Primary Dx); Dental calculus; Subgingival dental calculus 10/18/2024 1:00 PM EST Office Visit [facility] AD[facility] [address] [place] [address] Cristo Moody 10/11/2024 1:00 PM EST Office Visit [facility] [address] [place] [address] Paolo Cardoza DDS Severe dental caries (Primary Dx); Non-restorable tooth 10/10/2024 10:00 AM EST Office Visit [facility] AD[facility] [address] [place] [address] Paolo Cardoza DDS Severe dental caries (Primary Dx); Non-restorable tooth from Last 3 Months Social History Tobacco [...] - 19+ 3-dose series) 1998 COVID-19 Vaccine ( - season) 2024 08/11/2022, 08/09/2021, 01/17/2021, Additional history exists Influenza Vaccine (#1) 2024 07/26/2023 Dental Prophylaxis 04/23/2025 10/23/2024 Dental X-Ray: Bitewings 10/19/2025 10/18/2024, 07/29 Tobacco Screening 10/23/2025 10/23/2024 Dental X-Ray: Full Mouth 10/19/2027 10/18/2024, 07/1 Zoster Vaccines (1 of 2) 2029 RSV [...] Procedure Name Priority Date/Time Associated Diagnosis Comments CASE PRESENTATION, DETAILED AND EXTENSIVE TREATMENT PLANNING Routine 10/23/2024 3:00 PM EST ORAL HYGIENE INSTRUCTIONS Routine 10/23/2024 3:00 PM EST Dental plaque Dental calculus Subgingival dental calculus PROPHYLAXIS - ADULT Routine 10/23/2024 3 :00 PM EST Dental plaque Dental calculus Subgingival dental calculus INTRAORAL - COMPLETE SERIES OF RADIOGRAPHIC IMAGES Routine 10/18/2024 1:00 PM EST 1,2,3,4,5,6,7,8,9,10,11, 12,13,14,15,16,17,18,19, 20,21,22,23,24,25,26,27, 28,29,30,31,32 LIMITED ORAL EVALUATION - PROBLEM FOCUSED Routine 10/18/2024 1:00 PM EST OFFICE VISIT FOR OBSERVATION (DURING REGULARLY SCHEDULED HOURS) - NO OTHER SERVICES PERFORMED Routine 10/18/2024 1:00 PM EST 31 EXTRACTION, ERUPTED TOOTH OR EXPOSED ROOT (ELEVATION/FORCEPS REMOVAL) Routine 10/11/2024 1:00 PM EST CASE PRESENTATION, DETAILED AND EXTENSIVE TREATMENT PLANNING Routine 10/11/2024 1:00 PM EST CASE PRESENTATION, DETAILED AND EXTENSIVE TREATMENT PLANNING Routine 10/10/2024 10:00 AM EST LIMITED ORAL EVALUATION - PROBLEM FOCUSED Routine 10/10/2024 10:00 AM EST from Last 3 Months Insurance DENTAL - HSN FULL (MEDICAID)
== END 2024-11-27 08:58 | disposition home or self-care (01) ==
LOC: HO.US 08:57
PROVIDERS: PCP Physician Assistant; Visit Provider Physician Assistant
DX: R74.8 Abnormal levels of other serum enzymes (principal)
CPT/HCPCS: 76700

== ENCOUNTER → 2024-11-27 08:58 | Outpatient (BNV) | payer OTHER, SELFPAY | PROVIDERS: PCP Physician Assistant; Visit Provider Radiology Diagnostic Radiology | DX: K80.20 Calculus of gallbladder without cholecystitis without obstruction (principal) | CPT/HCPCS: 76700 ==

== ENCOUNTER 2025-01-09 08:28 | Day surgery (SDC) | payer OTHER, SELFPAY ==
[2025-01-07 14:03] VITALS: BMI 33.8
--- NOTE | 2025-01-08 08:49 | HO.ANESPROP2 ---
Documented by User: Analia Flores NP 01/08/25 08:53 HPI - Anesthesia Eval Consult details Narrative: 44yo M for Upper Endoscopy and Colonoscopy Anesthesia Pre-Procedure Meds Is the patient on any of the following meds?: GLP1/DPP4 PMFSH Active Problems Active Problems: All Active Problems Elevated liver enzymes (Acute) URI, acute (Acute) Class 1 obesity (Acute) Colon cancer screening (Acute) Impaired glucose metabolism (Acute) Pre-op evaluation (Acute) Pterygium (Acute) Elevated fasting glucose (Acute) Cyst of eye (Acute) GERD (gastroesophageal reflux disease) (Acute) Patella-femoral syndrome (Acute) Numbness of right hand (Acute) Carpal tunnel syndrome of left wrist (Acute) Herpes simplex (Acute) Left median nerve neuropathy (Acute) Right medial knee pain (Acute) Otitis externa (Acute) Bronchitis (Acute) Right otitis media (Acute) Obese (Acute) Annual physical exam (Acute) Weakness on left side of face (Acute) Otitis media (Acute) HLD (hyperlipidemia) (Acute) Skin lesion of cheek (Acute) Screening for diabetes mellitus (DM) (Acute) Screening for hypothyroidism (Acute) Asthma (Acute) Paresthesia and pain of both upper extremities (Acute) Isaacs's palsy (Acute) Cervical spine pain (Acute) Past Medical History Medical History (Updated 01/09/25 @ 09:27 by Valarie Bojorquze RN) Elevated cholesterol Isaacs's palsy Asthma Diabetes Family History Family History Father Diabetes Surgical History Surgical History (Updated 01/09/25 @ 09:22 by Valarie Bojorquez RN) Hx of eye surgery History of bilateral carpal tunnel release Social History Social History Housing: House Alcohol intake: former Patient Tobacco Use Status: Never used Tobacco e-Cigarette/Vaping Use: Never Used Second Hand Smoke Exposure: No Use of substances other than those prescribed or required for medical reasons: No Are you DNR?: No Advance Directives: No Advance Directives Information Provided: Yes service: No Current occupational status: employed 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 Cognitive needs: No Hearing needs: No Vision needs: No Meds Allergies Allergy/AdvReac Type Severity Reaction Status Date / Time albuterol AdvReac Unknown vomiting Verified 01/09/25 09:21 Exam Height,Weight and Vital Signs: Height 5 ft 8 in Weight 100.698 kg Pertinent Lab Results Pertinent Lab Results: Laboratory Tests 10/09/24 10/25/24 09:27 09:55 WBC 6.5 Hgb 16.7 Hct 49.4 Plt Count 339 Sodium 142 Potassium 4.1 Chloride 108 Carbon Dioxide 26 BUN 16 Creatinine 0.99 Assessment and Plan Assessment Anesthesia Assessment: Chart Reviewed Documented by User: Roger Schwarz MD 01/09/25 10:51 [facility] Past Medical History Medical History (Updated 01/09/25 @ 09:27 by Valarie Bojorquez RN) Elevated cholesterol Isaacs's palsy Asthma Diabetes Narrative: RODOLFO Family History Family History Father Diabetes Family history of problems with anesthesia: No Surgical History Surgical History (Updated 01/09/25 @ 09:22 by Valarie Bojorquez RN) Hx of eye surgery History of bilateral carpal tunnel release History of Problems with Anesthesia: No Social History Social History Housing: House Alcohol intake: former Patient Tobacco Use Status: Never used Tobacco e-Cigarette/Vaping Use: Never Used Second Hand Smoke Exposure: No Use of substances other than those prescribed or required for medical reasons: No Are you DNR?: No Advance Directives: No Advance Directives Information Provided: Yes service: No Current occupational status: employed 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 Cognitive needs: No Hearing needs: No Vision needs: No Meds Allergies Allergy/AdvReac Type Severity Reaction Status Date / Time albuterol AdvReac Unknown vomiting Verified 01/09/25 09:21 Exam Airway Mallampati Class: I TM Dist: <=3cm Neck ROM: Full Loose/Missing/Broken Teeth: No Heart: ok Lungs: ok Assessment and Plan Assessment Anesthesia Assessment: Anesthesia Plan Discussed Final Anesthetic Review Family History of Problems with Anesthesia: No History of Problems with Anesthesia: No NPO: Yes ASA Class: III Final Preanesthetic Review: No Changes in Pt Med Stat, Meds/Allgs Chart Reviewed, Consent Obtained/Reviewed and Anes Risks/Benef Reviewed Patient Risk: Intermediate Procedure Risk: Intermediate Anesthetic Plan Anesthetic Plan: Agree w/ Assess. and Plan and TIVA Disposition: Standard PACU
[2025-01-09 09:28] VITALS: BMI 33.9
[2025-01-09 09:31] VITALS: BP 124/79; PULSE 89; RESP 20; TEMP 36.6; O2SAT 95
--- NOTE | 2025-01-09 09:36 | P.HPSUR_ITS ---
Pre-Procedural Eval Section A - 24 Hr Update-Section A only Date of Service: 01/09/25 Section B - Complete if H&P > 30 days Chief Complaint: Gastro-esophageal reflux disease without esophagit Relevant Family History (Specify if Yes): No Relevant Social History: None Present Medications: see Short Stay Collaborative assessment Medical History: Significant History (GERD, carpal tunnel syndrome of left wr ist, obesity, hyperlipidemia) History of Previous Operations: No relevant previous surgery Allergies: Allergies Allergy/AdvReac Type Severity Reaction Status Date / Time albuterol AdvReac Unknown vomiting Verified 01/09/25 09:21 Review of Systems Sugical H&P ROS: Negative: Constitution, Cardiovascular, Respiratory, Neurological, Psychiatric, Hem-Onc, Allergic/Immunologic, Gastrointestinal, Genitourinary, Musculoskeletal, Integumentary, Endocrine and Ey es/Ears/Nose/Throat Exam Surgical H&P Exam: Normal: HEENT, Normal: Heart, Normal: Lungs, Normal: Extremities, Normal: Abdomen, Normal: Skin and Normal: Neurological Plan Diagnosis/Plan: Unchanged I have reviewed the history and physical and performed a pertinent physical examination on my patient. No changes have occurred unless specified. Time Spent With Patient Time: Total time managing care of this patient today ____ minutes.
--- NOTE | 2025-01-09 10:41 | HO.OPN-COLON ---
Colonoscopy Operative Note Operative Note Date of Service: 01/09/25 Narrative: Operative Information Procedure Description: EGD, Colonoscopy Indication: GERD, screening Anesthesia: MAC FLEXIBLE TRANSORAL UPPER GASTROINTESTINAL ENDOSCOPY AND COLONOSCOPY PROCEDURE NOTE UPPER ENDOSCOPY Consent: Indications for the procedure and potential complications of bleeding, perforation, reaction to medications and missed diagnosis were discussed with the patient and informed consent was obtained. Instrument: Olympus GIF H 190 J mid size upper endoscope Monitoring: Vital signs and clinical assessment, continuous EKG monitoring, Pulse oximetry, Carbon Dioxide monitoring and blood pressure monitoring were done throughout the procedure. Procedure: The patient was placed in the left lateral decubitis position and pre-procedure medications were administered and a bite block was placed. The endoscope was inserted into the mouth and advanced under direct vision to the third part of duodenum. A careful inspection was made as the upper endoscope was withdrawn including a retroflexed examination of the proximal stomach; Findings and interventions are described below. Findings: Larynx:normal Esophagus: GE junction at 39 cm, diaphragm hiatus at 41 cm, consistent with 2 cm sliding hiatal hernia, boggy mucosa and erythema at GEJ bx taken from here and random esophagus. One site was oozing continuously so clip applied, schatzki ring noted as well Stomach: Patchy erythema. Biopsies were obtained. Grade 2 flap valve on retroflexed examination of the cardia. Duodenum: bulbar duodenitis - bx taken Intervention: Biopsies as noted above, clip applied COLONOSCOPY Instrument: Olympus variable stiffness pediatric scope 190L Colonoscopy Monitoring: Vital signs and clinical assessment, continuous EKG monitoring, Pulse oximetry, Carbon Dioxide monitoring and blood pressure monitoring were done throughout the procedure. Colon withdrawal time was 8 minutes. Procedure: The patient was placed in the left lateral decubitis position and pre-procedure medications were administered. After a digital rectal examination of the ano-rectum, the video colonoscope was inserted into the rectum and advanced through the colon to the cecum/TI. The colonoscope was slowly withdrawn in a retrograde panoramic fashion and the colon mucosa was carefully examined including a retroflexed view of the rectum. Findings and interventions are described below. Procedure Difficulty: easy Findings: Terminal Ileum-normal Cecum:normal Ascending Colon: normal Transverse Colon -normal Descending Colon:normal Sigmoid Colon: normal Rectum: Retroflexion with small internal hemorrhoids, grade I Anorectum - normal Colon preparation: [facility] Bowel Preparation Scale Right colon; 2 Transverse colon: 2 Left colon; 2 (0 = Unprepared colon segment with mucosa not seen due to solid stool that cannot be cleared. 1 = Portion of mucosa of the colon segment seen, but other areas of the colon segment not well seen due to staining, residual stool and/or opaque liquid. 2 = Minor amount of residual staining, small fragments of stool and/or opaque liquid, but mucosa of colon segment seen well. 3 = Entire mucosa of colon segment seen well with no residual staining, small fragments of stool or opaque liquid) Impression and Post Procedure Diagnosis: Endoscopy Findings: esophagitis schatzki ring gastritis duodenitis Colonoscopy Findings: internal hemorrhoids Plan: Await Pathology results Repeat Colonoscopy in 10 years or earlier if clinically indicated High fiber diet leaflet avoid straining at stool, epsom salts and sitz bath, anusol supps or cream check if taking PPI if H pylori pos then treat Above findings were reviewed with the patient and relevant handouts were provided if indicated.
[2025-01-09 11:02] VITALS: BP 111/71; PULSE 80; RESP 18; TEMP 36.2; O2SAT 94
[2025-01-09 11:17] VITALS: BP 120/80; PULSE 78; RESP 18; TEMP 36.3; O2SAT 95
[2025-01-09 12:31] LABS: Glucose, Whole Blood 146 mg/dL (60-115)
== END 2025-01-09 11:39 | disposition home or self-care (01) ==
PROVIDERS: PCP Physician Assistant; Visit Provider Internal Medicine Gastroenterology
PROC: (CPT 45378; principal; 2025-01-09 11:40)
DX: Z12.11 Encounter for screening for malignant neoplasm of colon (principal); K64.0 First degree hemorrhoids; K21.9 Gastro-esophageal reflux disease without esophagitis; K29.50 Unspecified chronic gastritis without bleeding; K20.80 Other esophagitis without bleeding; K44.9 Diaphragmatic hernia without obstruction or gangrene; K22.2 Esophageal obstruction; E78.5 Hyperlipidemia, unspecified; E11.9 Type 2 diabetes mellitus without complications; J45.909 Unspecified asthma, uncomplicated; Z79.899 Other long term (current) drug therapy; Z88.8 Allergy status to other drugs, medicaments and biological substances; Z98.890 Other specified postprocedural states
CPT/HCPCS: 45378; 43239; 82947; 88305; 88313; 88342; J2003; J2704; J3010

== ENCOUNTER → 2025-01-09 08:28 | Outpatient (BNV) | payer OTHER, SELFPAY | PROVIDERS: PCP Physician Assistant; Visit Provider Internal Medicine Gastroenterology | DX: Z12.11 Encounter for screening for malignant neoplasm of colon (principal); K64.0 First degree hemorrhoids; K21.00 Gastro-esophageal reflux disease with esophagitis, without bleeding; K22.2 Esophageal obstruction; K29.80 Duodenitis without bleeding; K29.70 Gastritis, unspecified, without bleeding | CPT/HCPCS: 43239; 45378 ==

== ENCOUNTER 2025-02-05 13:55 | Outpatient (AMB) | payer OTHER, SELFPAY ==
--- OUTSIDE RECORDS SUMMARY | 2025-02-05 13:59 | XMS_ITS | Clinical Summary ---
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
--- NOTE | 2025-02-05 14:11 | A.OFFPC_ITS ---
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 Accompanied by: Self / Same As Patient Allergies albuterol Adverse Reaction (Unknown, Verified 02/05/25 15:11) vomiting Medication List - Last Reconciled 02/05/25 by Berny Ochoa PA-C meloxicam 15 mg PO DAILY metformin ER 500 mg PO DAILY pantoprazole 40 mg PO DAILY rosuvastatin 10 mg PO DAILY 90 days Tobacco use date assessed: 02/05/25 Dental Screening Dental Screen Date: 02/05/25 Did you have a dental visit in the last 12 months?: Yes Did you have a dental problem in the last 6 months where you did not have access to dental care?: No Was dental information given to patient?: Patient has dentist HPI 6 Months f/u HPI Details Patient is a 44-year-old male here today for a follow-up visit Patient has a past medical history significant for obesity, impaired glucose metabolism, asthma.. -Concern--> has noted a left lower extre mity skin lesion that is roughened texture. He is concerned about this lesion would like removal. Also reports over the last week he has been having lower lumbar spine pain due to lifting something and may have sprained in muscle. He is interested in a muscle relaxer .. Obesity/ Impaired glucose metabolism: Patient continues on metformin with decent affect. No side effects reported from metformin. Today's A1c is 6.1. He was previously on Von P1 though is not technically a diabetic and insurance will not cover. He continues with the use of his metformin daily. .. 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 1. Little interest or pleasure in doing things: not at all 2. Feeling down, depressed, or hopeless: not at all 3. Trouble falling or staying asleep, or sleeping too much: not at all 4. Feeling tired or having little energy: several days 5. Poor appetite or overeating: not at all 6. Feeling bad about yourself - or that you are a failure or have let yourself or your family down: not at all 7. Trouble concentrating on things, such as reading the newspaper or watching television: not at all 8. Moving or speaking so slowly that other people could have noticed. Or the opposite - being so fidgety or restless that you have been moving around a lot more than usual: not at all 9. Thoughts that you would be better off or of hurting yourself in some way: not at all Total score: 1 Depression Screening Interpretation: Negative Depression Screening Done: Yes 40241 - PHQ-9 Billing: Yes Source: Developed by Drs. Dc Hanna, Vianney Manzo, Ernesto Washington and colleagues, with an educational harris from [employer]. Thrive Questionnaire Date Thrive assessed: 02/05/25 I am a: Patient What is your living situation today?: I have a steady place to live Within the past 12 months, did the food you bought not last and you didn't have the money to get more?: Never true Within the past 12 months, did you worry whether your food would run out before you got money to buy more?: Never true Do you have trouble paying for medicines?: No Do you have trouble getting transportation to medical appointments?: No Do you have trouble paying your heating and electricity bill?: No Do you have trouble taking care of your child, family member or friend?: No Do you have trouble with day-to-day activities such as bathing, preparing meals, shopping, managing finances, etc.?: No Are you currently unemployed and looking for a job?: No Are you interested in more education?: No Please select the resources that you would like help with: None Currently or been in a relationship where the following occur: No concerns reported THRIVE Score: 0 AUDIT C Alcohol Use Questionnaire (AUDIT-C) 1. How often do you have a drink containing alcohol?: Never 3. How often do you have six or more drinks on one occasion?: Never Total Score: 0 Score Reviewed/Action Taken: No JAS-7 AMB Questionnaire JAS-7 Date JAS - 7 assessed: 02/05/25 Feeling nervous, anxious, or on edge: 0 = Not at all Not being able to stop or control worryin = Not at all Worrying too much about different things: 0 = Not at all Trouble relaxin = Not at all Being so restless that it is hard to sit still: 0 = Not at all Becoming easily annoyed or irritable: 0 = Not at all Feeling afraid as if something awful might happen: 0 = Not at all Total JAS-7 score (0-4 normal; 5-9 mild; 10-14 moderate; 15-21 severe): 0 Source: Developed by Drs. Dc Hanna, Viannye Manzo, Ernesto Washington and colleagues, with an educational harris from [employer]. JAS-7 Assessment Billing JAS-7 Assessment Tool: JAS-7 Assessment 77493 Review of Systems Const Denies headache(s) Eyes Denies loss of vision ENT Denies vertigo, Denies dizziness, Denies headache(s) and Denies sore throat Card Denies chest pain, Denies leg edema and Denies lightheadedness Resp Denies cough, Denies hemoptysis and Denies wheezing GI Denies abdominal pain, Denies melena, Denies constipation, Denies diarrhea and Denies vomiting Denies dysuria, Denies urinary frequency and Denies urinary urgency Musc Denies arthralgias, Denies joint swelling, Denies numbness and Denies tingling Neuro Denies Abnormal speech present, Denies behavioral changes, Denies vertigo, Denies dizziness, Denies headache(s), Denies loss of vision, Denies memory loss, Denies numbness and Denies tingling Psych Denies anxiety, Denies behavioral changes, Denies depression, Denies memory loss and Denies panic attacks Dave/Lymph Denies easy bleeding and Denies easy bruising Aller/Immun Denies wheezing Physical exam (Primary Care) Vital Signs: Last Vital Signs Pulse 97 02/05/25 14:12 BP 120/84 02/05/25 14:12 Pulse Ox 97 02/05/25 14:12 Oxygen Delivery Method Room Air 02/05/25 14:12 BMI result Body Mass Index 34.2 Tobacco/Smoking Status: Tobacco use Status Tobacco use date assessed 02/05/25 02/05/25 14:26 Patient Tobacco Use Status Never used Tobacco 02/05/25 14:11 e-Cigarette/Vaping Use Never Used 02/05/25 14:11 PHQ-9: PHQ-9 Score PHQ-9: Total score 1 02/05/25 15:13 Depression Screening Interpretation: Negative Thrive Assessment: Date of Thrive Assessment Date Thrive assessed 02/05/25 02/05/25 14:12 Currently or been in a relationship where the following occur: No concerns rep orted Const General: healthy appearing, no acute distress, alert and awake Nutritional Appearance: well nourished Orientation/consciousness: oriented to person, oriented to place and oriented to time HENMT Ears: TM's normal bilaterally General nose exam: Normal nasal mucous membranes and turbinates present Eyes Conjunctivae: conjunctivae normal Sclerae: sclerae normal Pupils: Equal, round and reactive pupils present Neck Neck: Yes no lymphadenopathy and Yes no JVD Thyroid: Thyroid normal Carotids: no bruits Resp Effort & Inspection: normal respiratory effort and not tachypneic Auscultation: no crackles, no rales, no rhonchi and no wheezes Cardio Rate: regular rate Rhythm: regular rhythm Heart sounds: no murmurs and normal S1 and S2 GI Palpation (GI): Soft to palpation, nontender, no hepatomegaly and no spl enomegaly Auscultation: normal bowel sounds Skin General skin exam: no rashes or lesions noted and dry skin Neuro General: oriented to person, oriented to place and oriented to time Cranial nerves: Yes Equal, round and reactive pupils present Speech: No Abnormal speech present Gait exam (Neuro): Normal gait present Motor exam (neuro): no tremor noted Extrem Right upper extremity: full ROM Left upper extremity: full ROM Right lower extremity: full ROM; no edema Left lower extremity: full ROM; no edema Psych Mental Status: mental status grossly normal Speech and movement: Normal speech and movement present Affect: normal affect Attitude: cooperative Thought process: Normal thought process present Results AMB Hemoglobin A1c AMB Hemoglobin A1c 6.4 % Last Edit by MARCIA Kuo on 02/05/25 15:06 Results Reviewed Results Reviewed: Laboratory Last Values Hgb A1c (Clinic) 6.4 % (4.0-6.0) H 02/05/25 15:05 Coding Level of Care Code Est Pt Level 4 (97393) Diagnoses Class 1 obesity E66.811 Mixed hyperlipidemia E78.2 Hyperlipidemia type: mixed hyperlipidemia Mild intermittent asthma without complication J45.20 Asthma complication type: uncomplicated Asthma persistence: intermittent Asthma severity: mild Back strain, initial encounter S39.012A Encounter type: initial encounter Impaired glucose metabolism R73.09 Additional Codes JAS-7 Assessment Billing - JAS-7 Assessment Tool: JAS-7 Assessment 11401 ([id number]) PHQ-9 - 58533 - PHQ-9 Billing: Yes ([id number]) Assessment & Plan Assessment & Plan (1) Class 1 obesity: Code(s): E66.811 - Obesity, class 1 Category: Medical Plan: Patient does understand his BMI is over 30 and will like to continue on Wegovy for weight reduction. Also does have comorbidities such as impaired glucose metabolism and hyperlipidemia. (2) HLD (hyperlipidemia): Code(s): E78.5 - Hyperlipidemia, unspecified Category: Medical Qualifiers: Hyperlipidemia type: mixed hyperlipidemia Qualified Code(s): E78.2 - Mixed hyperlipidemia Plan: Patient's most recent lipid panel showing good control of his total cholesterol LDL. He continues on statin therapy without side effect. Goal LDL is to remain below 130 (3) Asthma: Code(s): J45.909 - Unspecified asthma, uncomplicated Category: Medical Qualifiers: Asthma complication type: uncomplicated Asthma persistence: intermittent Asthma severity: mild Qualified Code(s): J45.20 - Mild intermittent asthma, uncomplicated Plan: Patient reports his asthma is well controlled with only p.r.n. use of his albuterol inhaler. No reports of nighttime awakenings with asthma symptoms or recent asthma exacerbations. (4) Back strain: Code(s): S39.012A - Strain of muscle, fascia and tendon of lower back, initial encounter Category: Medical Qualifiers: Encounter type: initial encounter Qualified Code(s): S39.012A - Strain of muscle, fascia and tendon of lower back, initial encounter Plan: Reports injuring his back recently by picking something up. Will like a muscle relaxer to help him with reducing his back pain. (5) Impaired glucose metabolism: Code(s): R73.09 - Other abnormal glucose Category: Medical Plan: Patient has a history of impaired glucose metabolism, continues on metformin on a daily basis and has been able to maintain his A1c below 6.5. Orders: Orders AMB Hemoglobin A1c 02/05/25 R73.01 - Impaired fasting glucose Hemoglobin A1c 02/05/25 R73.09 - Other abnormal glucose Lipid Panel 02/05/25 R73.09 - Other abnormal glucose Prostate Specific Antigen Scr 02/05/25 R73.09 - Other abnormal glucose, Z12.5 - Encounter for screening for malignant neoplasm of prostate Comprehensive Nenzel. Panel Fast 02/05/25 R73.09 - Other abnormal glucose Complete Blood Count no Diff 02/05/25 R73.09 - Other abnormal glucose Medications: New baclofen 10 mg PO BEDTIME 15 tabs 0RF 15 days S39.012A - Strain of muscle, fascia and tendon of lower back, initial encounter
[2025-02-05 14:12] VITALS: BP 120/84; PULSE 97; O2SAT 97; BMI 34.2
== END 2025-02-05 15:22 | disposition home or self-care (01) ==
LOC: HO.HMCH 13:56
PROVIDERS: PCP Physician Assistant; Visit Provider Physician Assistant
DX: R73.01 Impaired fasting glucose (principal)

== ENCOUNTER → 2025-02-05 13:55 | Outpatient (BNVA) | payer SELFPAY | PROVIDERS: PCP Physician Assistant; Visit Provider Physician Assistant | DX: E66.811 Obesity, class 1 (principal); Z68.34 Body mass index [BMI] 34.0-34.9, adult; E78.2 Mixed hyperlipidemia; J45.20 Mild intermittent asthma, uncomplicated; S39.012A Strain of muscle, fascia and tendon of lower back, initial encounter; R73.09 Other abnormal glucose; X50.9XXA Other and unspecified overexertion or strenuous movements or postures, initial encounter; Y93.9 Activity, unspecified; Y92.9 Unspecified place or not applicable; Y99.9 Unspecified external cause status | CPT/HCPCS: 83036; 96127; 99212 ==

== ENCOUNTER 2025-02-07 10:48 | Outpatient (AMB) | payer OTHER, SELFPAY ==
--- NOTE | 2025-02-07 11:10 | MHC.OFFVIS ---
Vital Signs 02/07/25 11:16 Height 5 ft 8 in Weight 225 lb BMI 34.2 BP 134/78 Blood Pressure Location Rt brachial Position Sitting Pulse 86 Pulse Source Pulse Oximeter Pulse Oximetry (%) 96 Oxygen Delivery Method Room Air Intake Visit Reasons: CIC. S/P Duo Intake Note: ESTABLISHED PATIENT FOR CIC mgmt and s/p duo FUV. CC; Pt denies any GI sx or concerns at this time. PPI still effective for tx of GERD per pt. Counselling Psychologist Required: No Accompanied by: Self / Same As Patient Allergies albuterol Adverse Reaction (Unknown, Verified 02/07/25 11:16) vomiting HPI HPI CIC. S/P Duo: Details: LAST VISIT: Colon cancer screening GERD (gastroesophageal reflux disease) Plan Patient denies any cardiac or respiratory symptoms.? Patient reports acid reflux on omeprazole, however reports that it is not helping. Will send script for pantoprazole and patient will be sent for upper endoscopy to rule out gastritis, duodenitis, esophagitis, gastric or peptic ulcer, H pylori. Patient never had anesthesia in the past. Denies any history of sleep apnea.? No history infectious diseases in the past or present.? Not on any anticoagulation therapy.? No family or personal history of colon cancer or polyps.? Patient denies melena, hematochezia, unintentional weight loss or ribbon like stools.? Discussed at length the pre-procedure,? prep, diet & medications as well as what to expect prior, during and after the procedure.?? Stressed the importance of good bowel prep.? Recommended the use of Vaseline or Calmoseptine OTC & baby wipes with bowel movements to promote comfort.? ?Patient verbalizes understanding and agrees to plan of care.? He was given the opportunity to ask questions and all questions answered.? We will see him after the procedure.? Medications New polyethylene glycol 3350 (Miralax) As directed by gastroenterology department at [facility] 238 grams PO ONCE 238 grams 0RF Z12.11 bisacodyl (Dulcolax (bisacodyl)) take 4 tabs at noon the day before your colonoscopy 20 mg (4 x 5 mg) PO ONCE 1 day 4 tabs 0RF Z12.11 Discontinued omeprazole Discontinued Reason: Doctor's Order 20 mg PO DAILY 20 days 30 caps 0RF K21.9 UPPER ENDOSCOPY AND COLONOSCOPY: Findings: Larynx:normal Esophagus: GE junction at 39 cm, diaphragm hiatus at 41 cm, consistent with 2 cm sliding hiatal hernia, boggy mucosa and erythema at GEJ bx taken from here and random esophagus. One site was oozing continuously so clip applied, schatzki ring noted as well Stomach: Patchy erythema. Biopsies were obtained. Grade 2 flap valve on retroflexed examination of the cardia. Duodenum: bulbar duodenitis - bx taken Intervention: Biopsies as noted above, clip applied COLONOSCOPY Instrument: Olympus variable stiffness pediatric scope 190L Colonoscopy Monitoring: Vital signs and clinical assessment, continuous EKG monitoring, Pulse oximetry, Carbon Dioxide monitoring and blood pressure monitoring were done throughout the procedure. Colon withdrawal time was 8 minutes. Procedure: The patient was placed in the left lateral decubitis position and pre-procedure medications were administered. After a digital rectal examination of the ano-rectum, the video colonoscope was inserted into the rectum and advanced through the colon to the cecum/TI. The colonoscope was slowly withdrawn in a retrograde panoramic fashion and the colon mucosa was carefully examined including a retroflexed view of the rectum. Findings and interventions are described below. Procedure Difficulty: easy Findings: Terminal Ileum-normal Cecum:normal Ascending Colon: normal Transverse Colon -normal Descending Colon:normal Sigmoid Colon: normal Rectum: Retroflexion with small internal hemorrhoids, grade I Anorectum - normal Colon preparation: [place] Bowel Preparation Scale Right colon; 2 Transverse colon: 2 Left colon; 2 (0 = Unprepared colon segment with mucosa not seen due to solid stool that cannot be cleared. 1 = Portion of mucosa of the colon segment seen, but other areas of the colon segment not well seen due to staining, residual stool and/or opaque liquid. 2 = Minor amount of residual staining, small fragments of stool and/or opaque liquid, but mucosa of colon segment seen well. 3 = Entire mucosa of colon segment seen well with no residual staining, small fragments of stool or opaque liquid) Impression and Post Procedure Diagnosis: Endoscopy Findings: esophagitis schatzki ring gastritis duodenitis Colonoscopy Findings: internal hemorrhoids Plan: Await Pathology results Repeat Colonoscopy in 10 years or earlier if clinically indicated High fiber diet leaflet avoid straining at stool, epsom salts and sitz bath, anusol supps or cream check if taking PPI if H pylori pos then treat TODAY'S VISIT Patient is here today for follow-up and to discuss upper endoscopy and colonoscopy results. Patient denies any ill effects from the prep, anesthesia or procedure itself. Patient reports that he is feeling much better. Patient was started on pantoprazole after the procedure. Omeprazole was the seat and he states that he is feeling better. Normal colonoscopy 10 years recall. Upper endoscopy showed esophagitis, gastritis and duodenitis as well as Schatzki ring. Patient denies melena, hematochezia. Overall patient is feeling well, reports to have good appetite. 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 Cognitive needs: No Hearing needs: No Vision needs: No Review of Systems Const Denies weight gain and Denies weight loss ENT Reports no additional complaints, Denies dysphagia and Denies odynophagia Card Reports no additional complaints Resp Reports no additional complaints GI Denies abdominal pain, Denies belching, Denies melena, Denies bloating, Denies change in bowel habits, Denies dysphagia, Denies excessive flatus, Denies dyspepsia, Denies heartburn, Denies diarrhea, Denies loose stools, Denies nausea, Denies odynophagia and Denies vomiting Reports no additional complaints Musc Reports no additional complaints Neuro Reports no additional complaints Psych Reports no additional complaints Endo Reports no additional complaints Physical Exam Vital Signs: Last Vital Signs Pulse 86 02/07/25 11:16 BP 134/78 02/07/25 11:16 Pulse Ox 96 02/07/25 11:16 Oxygen Delivery Method Room Air 02/07/25 11:16 BMI result Body Mass Index 34.2 Const General: healthy appearing, no acute distress and well developed Nutritional Appearance: well nourished and obese Orientation/consciousness: patient oriented x3 Resp Effort & Inspection: normal respiratory effort, able to speak in complete sentences, no tracheal deviation and symmetric chest movement Auscultation: clear to auscultation bilaterally Cardio Rate: regular rate GI Inspection: Yes normal to inspection, No distended and Yes obesity Palpation (GI): Soft to palpation, not firm, nontender and No hepatosplenomegaly present Auscultation: normal bowel sounds General: Yes no CVA tenderness Back/Spine/Pelvis Back: no CVA tenderness Skin General skin exam: elasticity normal, turgor normal and dry skin Neuro General: patient oriented x3 Psych Appearance: grossly normal Mental Status: mental status grossly normal Results Reviewed Results Reviewed: Laboratory Tests 05/08/24 10/09/24 10/25/24 09:28 09:27 09:55 AST 28 49 H 40 H ALT 36 77 H 67 H Alkaline Phosphatase 92 97 101 Assessment & Plan Assessment & Plan (1) GERD (gastroesophageal reflux disease): Code(s): K21.9 - Gastro-esophageal reflux disease without esophagitis Category: Medical Qualifiers: Esophagitis presence: without esophagitis Qualified Code(s): K21.9 - Gastro-esophageal reflux disease without esophagitis (2) Elevated liver enzymes: Code(s): R74.8 - Abnormal levels of other serum enzymes Category: Medical Plan Patient will continue pantoprazole. Avoid dietary triggers and late night snacking. Staying upright for minimum 3 hours after meals discussed with patient. Colonoscopy in 10 years, sooner if clinically necessary or if anyone in his family will be diagnosed with CRC. When reviewing his lab results noticed that patient had elevated liver enzymes. First elevation on October 09 same day as he had a visit with us. I will repeat levels again. However discussed with patient losing weight and eating food that is low-fat, low carb, low-salt and high-protein. He will return in 6 months, sooner on as needed basis. He is agreeable to this plan and verbalizes understanding of instructions. He was given the opportunity to ask questions and all questions answered. Thank you for allowing me to participate in his care Orders: Orders Liver Panel 6 Months R74.01 - Elevation of levels of liver transaminase levels Medications: Refilled pantoprazole 40 mg PO DAILY 90 tabs 3RF Coding Level of Care Code Est Pt Level 3 (32722) Diagnoses Gastroesophageal reflux disease without esophagitis K21.9 Esophagitis presence: without esophagitis Elevated liver enzymes R74.8 Time Spent (min) 30 Comment 20 minutes spent with patient and additional 10 minutes spent reviewing his records
[2025-02-07 11:16] VITALS: BP 134/78; PULSE 86; O2SAT 96; BMI 34.2
--- OUTSIDE RECORDS SUMMARY | 2025-02-07 11:19 | XMS_ITS | Clinical Summary ---
Author Organization [facility] [employer] Address [address] [place] [address] Care Team Providers Care Sr. Manager Name Role Phone Unavailable Primary Care Provider [...] patient's age to complete this topic Meningococcal B Vaccine Aged Out No l onger eligible based on patient's age to complete [...]
== END 2025-02-07 11:27 | disposition home or self-care (01) ==
PROVIDERS: PCP Physician Assistant; Visit Provider Nurse Practitioner Family
DX: K21.9 Gastro-esophageal reflux disease without esophagitis (principal); R74.8 Abnormal levels of other serum enzymes
CPT/HCPCS: 99213

== ENCOUNTER → 2025-02-07 10:48 | Outpatient (BNVA) | payer SELFPAY | PROVIDERS: PCP Physician Assistant; Visit Provider Nurse Practitioner Family | DX: K21.9 Gastro-esophageal reflux disease without esophagitis (principal); R74.8 Abnormal levels of other serum enzymes | CPT/HCPCS: 99212 ==

== ENCOUNTER 2025-07-28 09:10 | Outpatient (REF) | payer OTHER, SELFPAY ==
[2025-07-28 09:41] LABS: Hematocrit 49.2 % (42.0-52.0); Hemoglobin 16.4 g/dl (14.0-18.0); Mean Corpuscular HGB Conc 33.3 g/dl (31.0-36.0); Mean Corpuscular Hemoglobin 27.4 pg (27.0-33.0); Mean Corpuscular Volume 82.1 fL (80.0-98.0); NRBC Abs Auto 0.000 X10*3/uL (0.0-0.012); NRBC Pct Auto 0.0 /100WBC (0.0-0.2); Platelet Count 328 X10*3/uL (160-400); Red Blood Count 5.99 X10*6/uL (4.60-5.80); White Blood Count 6.8 X10*3/uL (4.8-10.8)
--- OUTSIDE RECORDS SUMMARY | 2025-07-28 10:12 | XMS_ITS | Clinical Summary ---
Author Organization [employer] Address [address] [place] [address] Care Team Providers Care Oracle Programmer Name Role Phone Unavailable Primary Care Provider [...] Encounters Date Type Department Care Team Description 06/10/2025 Telephone [facility] [address] [place] [address] Kip High DDS 06/06/2025 11:30 AM EDT Office Visit [facility] [address] [place] [address] Jason Smith DMD from Last 3 Months [...] Panel 1979 SDOH Screening 1979 Sigmoidoscopy 1979 Disability Screening 1979 Alcohol/Substance Use Screening 1991 Family Planning (PISQ) 1994 Hepatitis C Screening 1997 DTaP/Tdap/Td Vaccines (1 - Tdap) 1998 Hepatitis B Vaccines (1 of 3 - 19+ 3-dose series) 1998 Dental Prophylaxis 04/23/2025 10/23/2024 COVID-19 Vaccine ( season) 2025 08/11/2022, 08/09/2021, 01/17/2021, Additional history exists Influenza Vaccine (#1) 2025 07/26/2023 Dental X-Ray: Bitewings 10/19/2025 10/18/2024, 07/29 Tobacco Screening 06/06/2026 06/06/2025 Dental X-Ray: Full Mouth 10/19/2027 10/18/2024, 03/25 [...] Years) and At-Risk Patients (6 to 49) Years Aged Out No longer eligible based on patient's age to complete this topic RSV under 20 months Aged Out No longe r eligible based on patient's age to complete this topic Rotavirus Vaccines Aged Out No longer eligible based on patient's age to complete this topic Procedures Procedure Name Priority Date/Time Associated Diagnosis Comments CASE PRESENTATION, DETAILED AND EXTENSIVE TREATMENT PLANNING Routine 06/06/2025 11:30 AM EDT INTRAORAL - PERIAPICAL FIRST RADIOGRAPHIC IMAGE Routine 06/06/2025 11:30 AM EDT LIMITED ORAL EVALUATION - PROBLEM FOCUSED Routine 06/06/2025 11:30 AM EDT PROPHYLAXIS - ADULT Routine 10/23/2024 3 :00 PM EST Dental plaque Dental calculus Subgingival dental calculus INTRAORAL - COMPLETE SERIES OF RADIOGRAPHIC IMAGES Routine 10/18/2024 1:00 PM EST from Last 3 Months or Most Recently Relevant to Health Maintenance Insurance DENTAL - HSN FULL (MEDICAID)
[2025-07-28 10:25] LABS: Alanine Aminotransferase 81 U/L (0-40); Albumin Level 4.4 g/dL (3.5-5.0); Alkaline Phosphatase 97 U/L (39-117); Anion Gap 9 (12-20); Aspartate Amino Transferase 43 U/L (5-37); Blood Urea Nitrogen 15 mg/dL (9-16); Calcium 9.4 mg/dL (8.4-10.2); Carbon Dioxide 27 mmol/L (22-29); Chloride 108 mmol/L (96-108); Cholesterol 224 mg/dL (<200); Estimated Glomerular Filt Rate > 60; HDL Cholesterol 34 mg/dL (>40); Potassium 4.3 mmol/L (3.3-5.1); Sodium 140 mmol/L (135-145); Total Protein 8.0 g/dL (6.5-8.0); Triglycerides 129 mg/dL (<150)
== END 2025-07-28 09:11 | disposition home or self-care (01) ==
LOC: HO.LAB 09:10
PROVIDERS: Absent Provider Nurse Practitioner Family; PCP Physician Assistant; Visit Provider Physician Assistant
DX: K21.9 Gastro-esophageal reflux disease without esophagitis (principal); R74.01 Elevation of levels of liver transaminase levels; K76.0 Fatty (change of) liver, not elsewhere classified; R79.89 Other specified abnormal findings of blood chemistry; K58.9 Irritable bowel syndrome, unspecified; R10.9 Unspecified abdominal pain; R73.09 Other abnormal glucose; Z12.5 Encounter for screening for malignant neoplasm of prostate
CPT/HCPCS: 36415; 80053; 80061; 80076; 82248; 83036; 84153; 85027; 99212

== ENCOUNTER 2025-07-28 10:31 | Outpatient (AMB) | payer OTHER, SELFPAY ==
[2025-07-28 10:54] VITALS: BP 108/76; PULSE 82; O2SAT 96; BMI 34.2
--- NOTE | 2025-07-28 10:54 | A.OFFVIS_ITS ---
Vital Signs 07/28/25 10:54 Height 5 ft 8 in Weight 225 lb BMI 34.2 BP 108/76 Blood Pressure Location Rt brachial Position Sitting Pulse 82 Pulse Source Pulse Oximeter Pulse Oximetry (%) 96 Oxygen Delivery Method Room Air Intake Visit Reasons: 6m Intake Note: Est pt for mgmt of GERD + Fatty liver. CC: Pt denies any new GI concerns or sx at this time. Requests refill of PPI. Labs done this morning. Photo Offset Printer Required: No Accompanied by: Self / Same As Patient Allergies albuterol Adverse Reaction (Unknown, Verified 02/07/25 11:16) vomiting HPI HPI 6m: Details: LAST VISIT GERD (gastroesophageal reflux disease) Elevated liver enzymes Plan Patient will continue pantoprazole. Avoid dietary triggers and late night snacking. Staying upright for minimum 3 hours after meals discussed with patient. Colonoscopy in 10 years, sooner if clinically necessary or if anyone in his family will be diagnosed with CRC. When reviewing his lab results noticed that patient had elevated liver enzymes. First elevation on October 09 same day as he had a visit with us. I will repeat levels again. However discussed with patient losing weight and eating food that is low-fat, low carb, low-salt and high-protein. He will return in 6 months, sooner on as needed basis. He is agreeable to this plan and verbalizes understanding of instructions. He was given the opportunity to ask questions and all questions answered. ? Thank you for allowing me to participate in his care Orders Liver Panel 6 Months R74.01 Refilled pantoprazole 40 mg PO DAILY 90 tabs 3RF TODAY'S VISIT Patient is here today for follow-up. Patient just did his blood work today and his liver enzymes increased. A1c also is up to 7.1%. Otherwise patient reports that he has been feeling well. Reports that his symptoms of acid reflux have be en compressed completely. He is taking pantoprazole daily. Denies dyspepsia, dysphagia or odynophagia. Reports that he is moving his bowels without any issues. Patient denies any family history of liver cirrhosis or any liver disease. Patient does admit that he has a sweet tooth and is eating lots of bread and carbs. He also admits to me eating fast food like [employer]. 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 Cognitive needs: No Hearing needs: No Vision needs: No Review of Systems Const Denies weight gain and Denies weight loss ENT Reports no additional complaints, Denies dysphagia and Denies odynophagia Card Reports no additional complaints Resp Reports no additional complaints GI Denies abdominal pain, Denies belching, Denies melena, Denies bloating, Denies change in bowel habits, Denies dysphagia, Denies excessive flatus, Denies dyspepsia, Denies heartburn, Denies diarrhea, Denies loose stools, Denies nausea, Denies odynophagia and Denies vomiting Reports no additional complaints Musc Reports no additional complaints Neuro Reports no additional complaints Psych Reports no additional complaints Endo Reports no additional complaints Physical Exam Vital Signs: Last Vital Signs Pulse 82 07/28/25 10:54 BP 108/76 07/28/25 10:54 Pulse Ox 96 07/28/25 10:54 Oxygen Delivery Method Room Air 07/28/25 10:54 BMI result Body Mass Index 34.2 Const General: healthy appearing and no acute distress Nutritional Appearance: obese Orientation/consciousness: patient oriented x3 Resp Effort & Inspection: normal respiratory effort, able to speak in complete sentences, no tracheal deviation and symmetric chest movement Auscultation: clear to auscultation bilaterally Cardio Rate: regular rate GI Inspection: Yes normal to inspection, No distended and Yes obesity Palpation (GI): Soft to palpation, not firm, nontender and No hepatosplenomegaly present Auscultation: normal bowel sounds General: Yes no CVA tenderness Back/Spine/Pelvis Back: no CVA tenderness Skin General skin exam: elasticity normal, turgor normal and dry skin Neuro General: patient oriented x3 Psych Appearance: grossly normal Mental Status: mental status grossly normal Results Reviewed Results Reviewed: Laboratory Tests 02/05/25 07/28/25 15:05 09:21 Hgb A1c (Clinic) 6.4 H Hemoglobin A1c % 7.1 H AST 43 H ALT 81 H Alkaline Phosphatase 97 Cholesterol 224 H LDL Cholesterol, Calc 165 H Assessment & Plan Assessment & Plan (1) GERD (gastroesophageal reflux disease): Code(s): K21.9 - Gastro-esophageal reflux disease without esophagitis Category: Medical Qualifiers: Esophagitis presence: without esophagitis Qualified Code(s): K21.9 - Gastro-esophageal reflux disease without esophagitis (2) Elevated liver enzymes: Code(s): R74.8 - Abnormal levels of other serum enzymes Category: Medical (3) NAFL (nonalcoholic fatty liver): Code(s): K76.0 - Fatty (change of) liver, not elsewhere classified Plan Increase liver enzymes. Discussed with patient changing his diet. Will rule out any autoimmune disorders. Low fat, low salt, low carb and high-protein diet recommended. Also recommended weight loss and exercise. Continue pantoprazole. Avoid dietary triggers and late night snacking. Staying upright for minimum 3 hours after meals discussed with patient. Follow-up in 6 months, sooner on as needed basis. He is agreeable to this plan and verbalizes understanding of instructions. He was given the opportunity to ask questions and all questions answered. Thank you for allowing me to participate in his care Orders: Orders Alpha Fetoprotein Today R79.89 - Other specified abnormal findings of blood chemistry Hepatitis A,B,C Profile Today R79.89 - Other specified abnormal findings of blood chemistry C Reactive Protein Today K58.9 - Irritable bowel syndrome, unspecified US abdomen davis w elastography Today K76.0 - Fatty (change of) liver, not elsewhere classified Platelet Count Today R74.01 - Elevation of levels of liver transaminase levels Smooth Muscle Antibody Today R79.89 - Other specified abnormal findings of blood chemistry Ceruloplasmin Today R79.89 - Other specified abnormal findings of blood chemistry Transglutaminase IgA Today R10.9 - Unspecified abdominal pain Liver Fibrosis Pnl Today K76.0 - Fatty (change of) liver, not elsewhere classified Ferritin Today R74.8 - Abnormal levels of other serum enzymes Erythrocyte Sedimentation Rate Today R79.89 - Other specified abnormal findings of blood chemistry Mitochondrial Antibody Today R79.89 - Other specified abnormal findings of blood chemistry Coding Level of Care Code Est Pt Level 4 (26863) Complex EM visit Add On G2211 Diagnoses Gastroesophageal reflux disease without esophagitis K21.9 Esophagitis presence: without esophagitis Elevated liver enzymes R74.8 NAFL (nonalcoholic fatty liver) K76.0 Time Spent (min) 35 Comment 25 minutes spent with patient and additional 10 minutes spent reviewing his records
== END 2025-07-28 11:18 | disposition home or self-care (01) ==
PROVIDERS: PCP Physician Assistant; Visit Provider Nurse Practitioner Family
DX: K21.9 Gastro-esophageal reflux disease without esophagitis (principal); R74.8 Abnormal levels of other serum enzymes; K76.0 Fatty (change of) liver, not elsewhere classified
CPT/HCPCS: 99214

== ENCOUNTER 2025-07-31 08:27 | Outpatient (REF) | payer OTHER, SELFPAY ==
--- NOTE | ~2025-07-31 | XR_ITS ---
EXAMINATION: XR KNEE, LEFT CLINICAL INFORMATION: M25.562 - Pain in left knee COMPARISON: Radiographs on September 01, 2022 TECHNIQUE: Three views of the left knee. FINDINGS: Normal alignment. Mild narrowing of the medial femorotibial and patellofemoral joint spaces. No acute fracture. No suprapatellar joint effusion. XR/XR knee LT 3V IMPRESSION: Early degenerative changes with mild joint space narrowing. Electronically signed by: Pablo Marquez MD 07/31/2025 11:22 AM [facility]
--- OUTSIDE RECORDS SUMMARY | 2025-07-31 08:53 | XMS_ITS | Clinical Summary ---
Author Organization [employer] Address [address] [place] [address] Care Team Providers Care Breastfeeding Educator Name Role Phone Unavailable Primary Care Provider [...] Type Department Care Team Description 06/10/2025 Telephone [facility] [address] [place] [address] Kip High DDS 06/06/2025 11:30 AM EDT Office Visit [facility] [address] [place] [address] Jason Smith DMD from Last 3 Months [...]
[2025-07-31 09:49] LABS: Platelet Count 339 X10*3/uL (160-400)
[2025-07-31 10:30] LABS: Erythrocyte Sedimentation Rate 10 MM/HR (0-15)
[2025-07-31 10:52] LABS: Ferritin 207 ng/mL (20-250)
[2025-07-31 10:59] LABS: HBS Num1 0.00 mIU/mL (0-7.99); HBc Num1 0.08 S/CO (0.00-0.79); HBsAGNum1 0.42 S/CO (0.00-0.99); Hepatitis A Antibody IgM 0.26 Index (0-0.79); Hepatitis B Surface Antigen Negative (Negative); ~HepC Num1 0.22 S/CO (0.00-0.79); ~Hepatitis A Antibody IgM Nonreactive (Nonreactive); ~Hepatitis B Surface Antibody NONREACTIVE (Nonreactive); ~Hepatitis C Antibody Nonreactive (Nonreactive)
[2025-08-09 19:03] LABS: FIB-ALT 63 U/L (9-46); FIB-Alpha-2-Macroglobulin 150 mg/dL (106-279); FIB-Apolipoprotein A1 128 mg/dL (94-176); FIB-GGT 54 U/L (3-95); FIB-Haptoglobin 152 mg/dL (43-212); FIB-Total Bilirubin 0.4 mg/dL (0.2-1.2); Liver Fibrosis Score 0.15; Liver Fibrosis Stage F0; Nec Inflam Act Grade A1; Nec Inflam Act Score 0.32
== END 2025-07-31 08:28 | disposition home or self-care (01) ==
LOC: HO.LAB 08:27
PROVIDERS: PCP Physician Assistant; Visit Provider Nurse Practitioner Family
DX: Z00.00 Encounter for general adult medical examination without abnormal findings (principal); R74.01 Elevation of levels of liver transaminase levels; R10.9 Unspecified abdominal pain; K58.9 Irritable bowel syndrome, unspecified; R74.8 Abnormal levels of other serum enzymes; R79.89 Other specified abnormal findings of blood chemistry; H53.8 Other visual disturbances; M25.562 Pain in left knee; E66.811 Obesity, class 1; E78.2 Mixed hyperlipidemia; J45.20 Mild intermittent asthma, uncomplicated; E11.65 Type 2 diabetes mellitus with hyperglycemia; H20.9 Unspecified iridocyclitis; H66.001 Acute suppurative otitis media without spontaneous rupture of ear drum, right ear; K75.81 Nonalcoholic steatohepatitis (NASH); H60.331 Swimmer's ear, right ear; Z23 Encounter for immunization
CPT/HCPCS: 36415; 73562; 81596; 82105; 82390; 82728; 85049; 85652; 86015; 86140; 86364; 86381; 86704; 86706; 86709; 86803; 87340; 90471; 90656; 99396

== ENCOUNTER 2025-07-31 08:55 | Outpatient (AMB) | payer OTHER, SELFPAY ==
--- NOTE | 2025-07-31 09:12 | A.OFFPC_ITS ---
Vital Signs 3 07/31/25 09:13 Height 5 ft 8 in Weight 226 lb BMI 34.4 BP 112/84 Blood Pressure Location Rt brachial Position Sitting Pulse 75 Pulse Source Pulse Oximeter Temp 96.9 F Temp Source Temporal Artery Scan Pulse Oximetry (%) 97 Oxygen Delivery Method Room Air Intake Visit Reasons: PE Intake Note: Patient is here today for a physical. Supervisor Cutting And Boning Required: No Snack Bar Cook: Not Required per policy Accompanied by: Self / Same As Patient Allergies albuterol Adverse Reaction (Unknown, Verified 07/31/25 09:30) vomiting Medication List - Last Reconciled 07/31/25 by Berny Ochoa PA-C baclofen 10 mg PO BEDTIME 15 days ciprofloxacin-hydrocortisone 0.2-1 % (Cipro HC) drps otic (ears) BID meloxicam 15 mg PO DAILY metformin ER 500 mg PO DAILY pantoprazole 40 mg PO DAILY rosuvastatin 10 mg PO DAILY 90 days Tobacco use date assessed: 07/31/25 Dental Screening Dental Screen Date: 02/05/25 HPI PE 2 HPI0 Details Patient is a 45-year-old male here today annual physical. Patient has a past medical history significant for obesity, type 2 diabetes, fatty liver disease, asthma.. -Concern--> He reports persistent eye pain and intermittent cloudy vision, which have been bothering him since a prior eye operation; he does not recall the specifics of the procedure but thinks it may have been for a growth or cataract. He was previously evaluated by an eye doctor who reportedly found no issues and did not prescribe any eye drops. The patient also complains of left knee pain that occurs in the morning or while walking, without any history of trauma or injury. Additionally, he has a long-standing history of dirty-appearing drainage from one ear. He reports that previously prescribed ear drops were effective. His hearing is unaffected. .. Type 2 diabetes Patient continues on metformin with decent affect. Most recent A1c is 7.1 from 6.1. He was previously on GL P1 though is not technically a diabetic and insurance will not cover. He continues with the use of his metformin daily. .. Fatty liver disease: Continues to have elevated liver enzymes. Patient followed by gastroenterology in his undergoing liver fibrosis evaluation. Recommendations has been to start a GLP 1 for weight loss. .. Colorectal cancer screening: Colonoscopy done in December 2024, normal, no polyps, repeat 10 years Vaccines: Up-to-date with COVID vaccine, considering flu vaccine [facility] Medical History Isaacs's palsy Elevated cholesterol Isaacs's palsy Asthma Diabetes Surgical History Hx of eye surgery History of bilateral carpal tunnel release Family History Father Diabetes Social History Housing: House Alcohol intake: former Patient Tobacco Use Status: Never used Tobacco e-Cigarette/Vaping Use: Never Used Second Hand Smoke Exposure: No service: No Current occupational status: employed 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 Cognitive needs: No Hearing needs: No Vision needs: No Questionnaire Thrive Questionnaire Date Thrive assessed: 02/05/25 I am a: Patient What is your living situation today?: I have a steady place to live Within the past 12 months, did the food you bought not last and you didn't have the money to get more?: Never true Within the past 12 months, did you worry whether your food would run out before you got money to buy more?: Never true Do you have trouble paying for medicines?: No Do you have trouble getting transportation to medical appointments?: No Do you have trouble paying your heating and electricity bill?: No Do you have trouble taking care of your child, family member or friend?: No Do you have trouble with day-to-day activities such as bathing, preparing meals, shopping, managing finances, etc.?: No Are you currently unemployed and looking for a job?: No Are you interested in more education?: No Please select the resources that you would like help with: None Currently or been in a relationship where the following occur: No concerns reported THRIVE Score: 0 AUDIT C Alcohol Use Questionnaire (AUDIT-C) 3. How often do you have six or more drinks on one occasion?: Never Total Score: 0 JAS-7 AMB Questionnaire JAS-7 Date JAS - 7 assessed: 02/05/25 Source: Developed by Drs. Dc Hanna, Vianney BErnesto Dunn and colleagues, with an educational harris from [employer]. Review of Systems Const Denies body aches, Denies chills, Denies excessive sweating, Denies fatigue, Denies fever(s) and Denies headache(s) Eyes Denies blurry vision ENT Denies dysphagia, Denies vertigo, Denies dizziness, Denies headache(s), Denies hearing loss and Denies tinnitus Card Denies chest pain, Denies chest pain with activity, Denies syncope, Denies irregular heart rhythm and Denies dyspnea Resp Denies chest congestion, Denies cough, Denies hemoptysis, Denies dyspnea and Denies wheezing GI Denies abdominal pain, Denies melena, Denies hematochezia, Denies coffee ground emesis, Denies dysphagia, Denies diarrhea, Denies nausea and Denies vomiting Denies difficulty urinating, Denies dysuria, Denies urinary frequency, Denies urinary hesitancy and Denies urinary urgency Musc Denies arthralgias, Denies limited range of motion, Denies muscle cramps and Denies muscle weakness Skin/Breast Denies rash and Denies skin ulcer Neuro Denies Abnormal speech present, Denies confusion, Denies vertigo, Denies dizziness, Denies syncope, Denies headache(s), Denies memory loss and Denies seizure-like activity Psych Denies anxiety, Denies confusion, Denies depression, Denies memory loss, Denies panic attacks and Denies paranoia Endo Denies excessive sweating, Denies fatigue, Denies flushing, Denies polydipsia and Denies polyuria Aller/Immun Denies wheezing Physical exam (Primary Care) Vital Signs: Last Vital Signs Temp 96.9 F 07/31/25 09:13 Pulse 75 07/31/25 09:13 BP 112/84 07/31/25 09:13 Pulse Ox 97 07/31/25 09:13 Oxygen Delivery Method Room Air 07/31/25 09:13 BMI result Body Mass Index 34.4 BMI Assessment/Plan discussion: High BMI High, discussed plan: lifestyle, weight reduction, dietary and physical activity Tobacco/Smoking Status: Tobacco use Status Tobacco use date assessed 07/31/25 07/31/25 09:15 Patient Tobacco Use Status Never used Tobacco 07/31/25 09:15 e-Cigarette/Vaping Use Never Used 07/31/25 09:15 Thrive Assessment: Date of Thrive Assessment Date Thrive assessed 02/05/25 07/31/25 09:15 Currently or been in a relationship where the following occur: No concerns reported Const General: cooperative, comfortable, no acute distress, alert and awake; No confusion Orientation/consciousness: oriented to person, oriented to place, patient oriented x3 and No confusion HENMT Other: RIGHT EAR: TM WITH NOTABLE OPACITY NOTED Head: Yes normocephalic Ears: external ears normal and TM's abnormal bilaterally Face and sinus: No sinus tenderness Mouth: Normal oral and palatal mucosa present and tongue normal Teeth and gingiva: dentition normal and gingiva normal Throat: Yes posterior oropharynx normal, Yes tonsils normal and Yes uvula midline Eyes Conjunctivae: conjunctivae normal Sclerae: sclerae normal Pupils: Equal, round and reactive pupils present EOM: EOMs intact bilaterally Direct Ophthalmoscopy: No no photophobia Eyes/upper lids images: 2 1. SCLERA IS INJECTED AND ERYTHEMATOUS BILATERALLY Neck Neck: Yes no lymphadenopathy, No tender and Yes no JVD Thyroid: Thyroid normal Carotids: no bruits Chest Chest palpation & inspection: no tenderness Resp Effort & Inspection: normal respiratory effort, no audible wheezes, not labored and no stridor Auscultation: no crackles, no rales, no rhonchi and no wheezes Cardio Jugular venous distension: no JVD Rate: regular rate, not bradycardic and not tachycardic Rhythm: regular rhythm Bruits: no carotid bruits Peripheral pulses: Peripheral pulses 2+ throughout GI Inspection: Yes normal to inspection, No abdominal wall ecchymosis and No visible herniation Palpation (GI): Soft to palpation, nontender, no guarding, not rigid and No hepatosplenomegaly present Auscultation: normoactive bowel sounds General: Yes no CVA tenderness Back/Spine/Pelvis Back: no CVA tenderness and No back tenderness Cervical Spine: cervical ROM normal Thoracic/Lumbar Spine: thoracic and lumbar spine normal to inspection, straight leg raise negative bilaterally, No thoraco-lumbar ROM limited and No lumbar spinal tenderness Skin Lesions: no lesions Rashes: no rashes Wounds: no wounds Neuro General: oriented to person, oriented to place, patient oriented x3, CN's II-XI intact bilaterally and No confusion Cranial nerves: Yes Equal, round and reactive pupils present and Yes Normal accommodation reflex present Cognition (Neuro): normal cognition Speech: No Abnormal speech present Gait exam (Neuro): Normal gait present Motor exam (neuro): 5/5 motor strength present throughout Extrem Right upper extremity: full ROM; no cyanosis Left upper extremity: full ROM; no cyanosis Right lower extremity: no edema Left lower extremity: no edema Psych Appearance: grossly normal Mental Status: mental status grossly normal Affect: normal affect Attitude: cooperative Thought process: Normal thought process present Office Procedures Flu Questionnaire Does the patient have a severe egg allergy?: No Does the patient have severe life threatening allergies?: No Does the patient have a fever or illness today?: No Has the patient ever had Guillain-Coy Syndrome?: No Has the patient ever had any past reaction to a flu shot?: No Immunizations Fluarix [id number] (PF) 45 mcg (15 mcg x 3)/0.5 mL IM syringe Performing Provider: Berny Ochoa PA-C [facility] Administered by: Zoe Alejandro CMA on 07/31/25 09:55 2 Dose Route Admin Location Dispensed Lot Number Expiration Date [facility] Performance Makeup Artist 0.5 mL IM Right Deltoid 0.5 mL [id number] 03/24/26 [id number] [employer] 2 VIS Given Date VIS Provided VIS Publication Date 07/31/25 Single Vaccine 24 Eligibility Eligibility Date Funding Source Not [facility] Eligible 07/31/25 Private Coding Level of Care Code Est Pt Prev Care 40-64y([id number]) Diagnoses Annual physical exam Z00.00 Acute pain of left knee M25.562 Chronicity: acute Class 1 obesity E66.811 Mixed hyperlipidemia E78.2 Hyperlipidemia type: mixed hyperlipidemia Mild intermittent asthma without complication J45.20 Asthma complication type: uncomplicated Asthma persistence: intermittent Asthma severity: mild Type 2 diabetes mellitus with hyperglycemia, without long-term current use of insulin E11.65 Diabetes mellitus complication status: with hyperglycemia Diabetes mellitus mcfp insulin use: without mcfp use Anterior uveitis H20.9 Non-recurrent acute suppurative otitis media of right ear without spontaneous rupture of tympanic membrane H66.001 Chronicity: acute Laterality: right Otitis media type: suppurative Recurrence: non-recurrent Spontaneous tympanic membrane rupture: without spontaneous rupture Assessment & Plan Assessment & Plan (1) Annual physical exam: Code(s): Z00.00 - Encounter for general adult medical examination without abnormal findings Category: Medical Plan: As per HPI (2) Left knee pain: Code(s): M25.562 - Pain in left knee Category: Medical Qualifiers: Chronicity: acute Qualified Code(s): M25.562 - Pain in left knee Plan: For the patient's left knee pain, an x-ray will be ordered. An orthopedic referral for a possible cortisone injection will be considered depending on the finding (3) Class 1 obesity: Code(s): E66.811 - Obesity, class 1 Category: Medical Plan: Patient does understand his BMI is over 30 and will like to continue on Wegovy for weight reduction. Also does have comorbidities such as impaired glucose metabolism and hyperlipidemia. (4) HLD (hyperlipidemia): Code(s): E78.5 - Hyperlipidemia, unspecified Category: Medical Qualifiers: Hyperlipidemia type: mixed hyperlipidemia Qualified Code(s): E78.2 - Mixed hyperlipidemia Plan: Patient's most recent lipid panel showing good control of his total cholesterol LDL. He continues on statin therapy without side effect. Goal LDL is to remain below 130 (5) Asthma: Code(s): J45.909 - Unspecified asthma, uncomplicated Category: Medical Qualifiers: Asthma complication type: uncomplicated Asthma persistence: i ntermittent Asthma severity: mild Qualified Code(s): J45.20 - Mild intermittent asthma, uncomplicated Plan: Patient reports his asthma is well controlled with only p.r.n. use of his albuterol inhaler. No reports of nighttime awakenings with asthma symptoms or recent asthma exacerbations. 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 A prescription for Mounjaro 2.5 mg once-weekly injection will be sent to the pharmacy to assist with glycemic control and weight loss. The patient was instructed to call in approximately one month to titrate the dose up to 5 mg. (7) Anterior uveitis: Code(s): H20.9 - Unspecified iridocyclitis Category: Medical Plan: Unclear etiology to patient's red irritated eyes. For the eye complaints of pain and cloudy vision, a trial of anti-inflammatory eye drops will be prescribed. (8) Otitis media: Code(s): H66.90 - Otitis media, unspecified, unspecified ear Category: Medical Qualifiers: Chronicity: acute Laterality: right Otitis media type: suppurative R ecurrence: non-recurrent Spontaneous tympanic membrane rupture: without spontaneous rupture Qualified Code(s): H66.001 - Acute suppurative otitis media without spontaneous rupture of ear drum, right ear Plan: Patient's right ear appears to have a otitis media infection. Will try oral antibiotics. 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
[2025-07-31 09:13] VITALS: BP 112/84; PULSE 75; TEMP 36.1; O2SAT 97; BMI 34.4
== END 2025-07-31 10:01 | disposition home or self-care (01) ==
LOC: HO.HMCH 08:56
PROVIDERS: PCP Physician Assistant; Visit Provider Physician Assistant
DX: Z00.00 Encounter for general adult medical examination without abnormal findings (principal); E11.65 Type 2 diabetes mellitus with hyperglycemia; E66.811 Obesity, class 1; Z68.34 Body mass index [BMI] 34.0-34.9, adult; M25.562 Pain in left knee; E78.2 Mixed hyperlipidemia; J45.20 Mild intermittent asthma, uncomplicated; H20.9 Unspecified iridocyclitis; H66.001 Acute suppurative otitis media without spontaneous rupture of ear drum, right ear; Z23 Encounter for immunization

== ENCOUNTER → 2025-07-31 10:59 | Outpatient (BNV) | payer OTHER, SELFPAY | PROVIDERS: PCP Physician Assistant; Visit Provider Radiology Body Imaging | DX: M17.12 Unilateral primary osteoarthritis, left knee (principal); M25.862 Other specified joint disorders, left knee | CPT/HCPCS: 73562 ==

== ENCOUNTER 2025-08-09 10:50 | Outpatient (REF) | payer OTHER, SELFPAY ==
[2025-08-09 13:03] LABS: CT PCR Urine NOT DETECTED (Not Detect.); NG PCR Urine NOT DETECTED (Not Detect.)
--- OUTSIDE RECORDS SUMMARY | 2025-08-20 12:01 | XMS_ITS | Clinical Summary ---
Author Organization [employer] Address [address] [facility] [address] [place] [address] Care Team Providers Care [employer] Name Role Phone Unavailable Primary Care Provider [...] Encounters Date Type Department Care Team Description 08/09/2025 Orders Only [facility] [address] [place] [address] Mary Ceballos MD 06/10/2025 Telephone [facility] [address] [place] [address] Kip High DDS 06/06/2025 11:30 AM EDT Office Visit [facility] [address] [place], [place] [id number] Jason Smith DMD from Last 3 Months [...] Dental Prophylaxis 04/23/2025 10/23/2024 COVID-19 Vaccine ( - season) 2025 08/11/2022, 08/09/2021, 01/17/2021, Additional history [...] Procedure Name Priority Date/Time Associated Diagnosis Comments CHLAMYDIA/TRICHOMONAS /NEISSERIA GONORRHOEAE, PCR, URINE Routine 08/09/2025 10:50 AM EST CASE PRESENTATION, DETAILED AND EXTENSIVE TREATMENT [...] or Most Recently Relevant to Health Maintenance Results * Chlamydia/Trichomonas/Neisseria gonorrhoeae, PCR, Urine (08/09/2025 10:50 AM EST) CT PCR, Urine NOT DETECTED Not Detect. [facility] Comment:A not detected test result does not exclude the possibilityof infection because test results can be affected byimproper specimen collection, concurrent antibiotic therapy,or the number of organisms in the specimen which may bebelow the sensitivity of the test. As with many diagnostictests, results from the Xpert CT/NG assay should beinterpreted in conjunction with other laboratory andclinical data available to the clinician.The Xpert CT/NG assay should not be used for the evaluationof suspected sexual abuse or for other medico-legalindications. Additional testing is recommended in anycircumstance when false positive or false negative resultscould lead to adverse medical, social or psychologicalconsequences. NG PCR, Urine NOT DETECTED Not Detect. [facility] Comment:A not detected test result does not exclude the possibilityof infection because test results can be affected byimproper specimen collection, concurrent antibiotic therapy,or the number of organisms in the specimen which may bebelow the sensitivity of the test. As with many diagnostictests, results from the Xpert CT/NG assay should beinterpreted in conjunction with other laboratory andclinical data available to the clinician.The Xpert CT/NG assay should not be used for the evaluationof suspected sexual abuse or for other medico-legalindications. Additional testing is recommended in anycircumstance when false positive or false negative resultscould lead to adverse medical, social or psychologicalconsequences. 08/09/2025 10:5 0 AM EST 08/09/2025 11:08 AM EST Mary aVldez MD LAB URINE ORDERABLES Final Result [facility] [address] [place] [address] [phone] from Last 3 Months Insurance DENTAL - [facility] FULL (MEDICAID)
== END 2025-08-09 10:51 | disposition home or self-care (01) ==
LOC: HO.LNP 10:50
PROVIDERS: Visit Provider Internal Medicine
DX: Z20.2 Contact with and (suspected) exposure to infections with a predominantly sexual mode of transmission (principal)
CPT/HCPCS: 87491; 87591